=== PATIENT | female | born 1960 | race Caucasian/White ===

== ENCOUNTER → 2016-10-26 | Outpatient (REF) ==
[~2016-10-26] MED LIST: CEFTIN 250250 MG/TAB PO; CYTOMEL 2525 MCG/TAB; MACROBID 1100 MG/CAP PO; MULTI VITAMINS1 TAB PO; NORCO 325 MG-51 TAB PO; OSCAL 500 TAB500 MG PO; SYNTHROID0.075 MG/T PO; VICODIN 5/5001 UDTAB PO; VIT C; VIT D 3; thyroid medicine
== END ==
LOC: WSOH 09:52 → WSPT 10:45
DX: Z02.1 Encounter for pre-employment examination (principal)

== ENCOUNTER → 2017-09-11 | Outpatient (CLI) | payer OTHER | LOC: MC.RAD 14:00 | DX: Z12.31 Encounter for screening mammogram for malignant neoplasm of breast (principal); Z53.8 Procedure and treatment not carried out for other reasons ==

== ENCOUNTER 2019-04-19 17:52 | Emergency (ER) | payer OTHER ==
[~2019-04-19] VITALS: Ht 170.2 cm; Wt 72.7 kg
[2019-04-19 18:03] VITALS: BP 122/61; TEMP 97.8
[2019-04-19 18:50] LABS: COLLECTION METHOD CLEAN CATCH
[2019-04-19 18:55] LABS: MUCOUS Present /lpf; PH 6 (5-8); SQUAMOUS EPITHELIAL 0-2 /hpf; URINE APPEARANCE Clear; URINE BACTERIA None Seen /hpf; URINE BILIRUBIN Negative (NEGATIVE); URINE BLOOD Negative (NEGATIVE); URINE COLOR Yellow; URINE GLUCOSE Negative (NEGATIVE); URINE KETONE Negative (NEGATIVE); URINE LEUKOCYTE ESTERASE 1+ (NEGATIVE); URINE NITRATE Negative (NEGATIVE); URINE PROTEIN(semi-quant) Negative (NEGATIVE); URINE RBC 0-2 /hpf; URINE UROBILINOGEN Negative (NEGATIVE)
[2019-04-19 19:12] LABS: BASO % 0.6 % (0.0-2.0); EOS # 0.2 (0.0-0.7); EOS % 2.9 % (0-4.0); GRAN # 3.6 (1.4-6.5); GRAN % 56.9 % (42.2-75.2); HEMATOCRIT 45.6 % (37.0-47.0); HEMOGLOBIN 14.8 g/dl (12.5-16.0); LYMPH % 31.4 % (20.0-51.0); MEAN CELL VOLUME 88 fl (80.0-100.0); MEAN CORPUSCULAR HEMOGLOBIN 28 pg (27.0-31.0); MEAN CORPUSCULAR HGB CONC 33 g/dl (33.0-37.0); MEAN PLATELET VOLUME 10.6 fl (7.4-10.4); MONO # 0.5 (0.1-0.6); PLATELET COUNT 260 K/mm3 (130-400); RED BLOOD COUNT 5.21 M/mm3 (4.10-5.30); REDCELL DISTRIBUTION WIDTH-CV 13.4 % (11.5-14.5)
[2019-04-19 19:31] LABS: ALBUMIN 4.6 gm/dL (3.5-5.0); BILIRUBIN,TOTAL 0.2 mg/dL (0.0-1.0); C-REACTIVE PROTEIN 0.6 mg/dL (0.0-0.9); CALCIUM 9.6 mg/dL (8.4-10.2); CREATININE, serum 0.83 (0.52-1.25); POTASSIUM 4.1 mmol/L (3.4-5.0); TOTAL PROTEIN 8.5 gm/dL (6.4-8.2)
[2019-04-19] MEDS ORDERED: PHENERGAN 25 TA25 MG PO (21:47)
[2019-04-19] MEDS ORDERED: NORCO 325 MG-51 TAB PO (21:47)
[2019-04-19] MEDS ORDERED: NORCO 325 MG-7.1 TAB PO (22:38)
[2019-04-19 22:55] VITALS: PULSE 72
== END 2019-04-19 22:55 | disposition home or self-care (01) ==
LOC: COL.ER 17:52
PROVIDERS: Emergency Medicine; Physician Assistant
DX: R11.10 Vomiting, unspecified (principal); R10.32 Left lower quadrant pain; K63.89 Other specified diseases of intestine; E03.9 Hypothyroidism, unspecified; Z90.710 Acquired absence of both cervix and uterus
CPT/HCPCS: J1885; J2270; J2405; J2550; J7030; Q9967

== ENCOUNTER 2019-04-22 13:40 | Day surgery (SDC) | payer OTHER ==
[~2019-04-22] VITALS: Ht 170.2 cm; Wt 74.8 kg
[~2019-04-22 13:40] MED LIST changes: +NORCO 325 MG-7.1 TAB PO; +PHENERGAN 25 TA25 MG PO
[2019-04-22 14:10] VITALS: BP 114/63; PULSE 58; TEMP 98.4
[2019-04-22] MEDS ORDERED: SYNTHROID0.088 MG/T PO (14:39)
--- NOTE | 2019-04-22 15:30 | NUR ---
Dismissal instructions signed and patient taken to the front door per wheelchair and assisted into vehicle with instructions in hand.
[2019-04-22 15:45] VITALS: BP 107/47; PULSE 62
--- NOTE | 2019-04-22 15:45 | NUR ---
Patient returns to bay 4 per cart and transfers from cart to recliner. IV fluids infusing and denies pain or nausea. Sipping on water. Spouse in room.
[2019-04-22 16:00] VITALS: BP 114/63; PULSE 59
--- NOTE | 2019-04-22 16:00 | NUR ---
Dr. Rea here and talking with the patient and spouse re: need for follow up with surgeon, CT scan, and oncology consult. All questions answered.
[2019-04-22 16:15] VITALS: BP 114/63; PULSE 59
--- NOTE | 2019-04-22 16:15 | NUR ---
Sipping on water and eating crackers. States that she is wanting to go home. IV discontinued.
[2019-04-22 16:21] VITALS: BP 105/60; PULSE 56
--- NOTE | 2019-04-22 16:25 | NUR ---
Patient dresses self. Spouse in room with patient.
== END 2019-04-22 16:30 | disposition home or self-care (01) ==
LOC: SDCO 13:40
DX: C18.7 Malignant neoplasm of sigmoid colon (principal); D12.8 Benign neoplasm of rectum; R63.3 Feeding difficulties; K56.699 Other intestinal obstruction unspecified as to partial versus complete obstruction
CPT/HCPCS: J2250; J2405; J3010

== ENCOUNTER 2019-05-28 10:18 | Emergency (ER) | payer OTHER ==
[~2019-05-28] VITALS: Ht 170.2 cm; Wt 72.7 kg
[~2019-05-28 10:18] MED LIST changes: +SYNTHROID0.088 MG/T PO
[2019-05-28 10:25] VITALS: TEMP 98.7
[2019-05-28 11:38] LABS: BASO % 0.6 % (0.0-2.0); EOS # 0.8 (0.0-0.7); EOS % 11.3 % (0-4.0); HEMATOCRIT 44.1 % (37.0-47.0); HEMOGLOBIN 14.2 g/dl (12.5-16.0); LYMPH # 1.7 (1.2-3.4); MEAN CELL VOLUME 89 fl (80.0-100.0); MEAN CORPUSCULAR HEMOGLOBIN 29 pg (27.0-31.0); MEAN CORPUSCULAR HGB CONC 32 g/dl (33.0-37.0); MEAN PLATELET VOLUME 11.1 fl (7.4-10.4); MONO # 0.6 (0.1-0.6); MONO % 7.8 % (1.7-9.3); PLATELET COUNT 177 K/mm3 (130-400); RED BLOOD COUNT 4.95 M/mm3 (4.10-5.30); REDCELL DISTRIBUTION WIDTH-CV 14.1 % (11.5-14.5)
[2019-05-28 11:43] LABS: ALBUMIN 4.7 gm/dL (3.5-5.0); BILIRUBIN,TOTAL 0.4 mg/dL (0.0-1.0); CALCIUM 9.4 mg/dL (8.4-10.2); CREATININE, serum 0.68 (0.52-1.25); POTASSIUM 4.2 mmol/L (3.4-5.0); TOTAL PROTEIN 8.5 gm/dL (6.4-8.2)
[2019-05-28 12:36] VITALS: BP 106/62; PULSE 65
== END 2019-05-28 12:35 | disposition home or self-care (01) ==
LOC: COL.ER 10:18
PROVIDERS: Family Medicine
DX: J18.9 Pneumonia, unspecified organism (principal); Z85.038 Personal history of other malignant neoplasm of large intestine
CPT/HCPCS: J7030

== ENCOUNTER 2020-03-03 07:29 | Day surgery (SDC) | payer OTHER ==
[~2020-03-03] VITALS: Ht 172.7 cm; Wt 77.7 kg
[2020-03-03] MEDS ORDERED: SYNTHROID0.075 MG/T PO (08:18)
[2020-03-03 08:25] VITALS: BP 114/64; PULSE 64; TEMP 97.8
[2020-03-03 10:45] VITALS: BP 135/78; PULSE 60
--- NOTE | 2020-03-03 10:45 | NUR ---
Patient returns to room 4 per cart from PACU accompanied by Anastacia DOUGHERTY and is awake and alert. Temp 97.5. Denies pain or nausea. IV fluids infusing and site is free of redness. Patient is sipping on water and grape juice.
[2020-03-03 11:00] VITALS: BP 120/78; PULSE 60
--- NOTE | 2020-03-03 11:00 | NUR ---
Resting with eyes closed and offers no complaints.
[2020-03-03 11:15] VITALS: BP 121/75; PULSE 56
--- NOTE | 2020-03-03 11:15 | NUR ---
Eating muffin and sipping on water.
--- NOTE | 2020-03-03 12:05 | NUR ---
Dismissal instructions given and IV discontinued. Provided office numbers for questions and concerns. Patient dismissed to home driven by spouse and taken to the front door per wheelchair and assisted into vehicle by this RN with in structions in hand.
[2020-03-03 12:26] VITALS: BP 132/80; PULSE 54; TEMP 98.9
== END 2020-03-03 12:05 | disposition home or self-care (01) ==
LOC: SDCO 07:29
DX: N13.1 Hydronephrosis with ureteral stricture, not elsewhere classified (principal); E03.9 Hypothyroidism, unspecified; Z85.038 Personal history of other malignant neoplasm of large intestine; Z92.21 Personal history of antineoplastic chemotherapy; Z90.49 Acquired absence of other specified parts of digestive tract; Z90.710 Acquired absence of both cervix and uterus; Z79.899 Other long term (current) drug therapy; Z88.6 Allergy status to analgesic agent
CPT/HCPCS: C1769; C2617; J0690; J1100; J1885; J2405; J2704; J3010; J7120; Q9967

== ENCOUNTER → 2020-05-03 | Outpatient (CLI) | payer OTHER ==
[~2020-05-03] MED LIST changes: +OMNICEF 300MG300 MG PO
== END ==
LOC: MC.RAD 10:35
DX: Z12.31 Encounter for screening mammogram for malignant neoplasm of breast (principal)

== ENCOUNTER 2020-05-04 16:06 | Emergency (ER) | payer OTHER ==
[~2020-05-04] VITALS: Ht 172.7 cm; Wt 76.4 kg
[~2020-05-04 16:06] MED LIST changes: -CYTOMEL 2525 MCG/TAB; +CYTOMEL 5MC5 MCG/TAB PO; +MASON NATURAL2000 IU PO; -MULTI VITAMINS1 TAB PO; -OMNICEF 300MG300 MG PO; +ONE-A-DAY ESSE1 EACH PO; -VIT C; -VIT D 3; +VITAMIN C500 MG PO
[2020-05-04 16:11] VITALS: TEMP 97.7
[2020-05-04 16:43] LABS: BASO # 0.1 (0.0-0.2); BASO % 0.9 % (0.0-2.0); EOS # 0.2 (0.0-0.7); EOS % 2.7 % (0-4.0); GRAN # 3.3 (1.4-6.5); GRAN % 58.3 % (42.2-75.2); HEMATOCRIT 45.2 % (37.0-47.0); HEMOGLOBIN 15.2 g/dl (12.5-16.0); LYMPH # 1.7 (1.2-3.4); LYMPH % 30.3 % (20.0-51.0); MEAN CELL VOLUME 93 fl (80.0-100.0); MEAN CORPUSCULAR HEMOGLOBIN 31 pg (27.0-31.0); MEAN CORPUSCULAR HGB CONC 34 g/dl (33.0-37.0); MEAN PLATELET VOLUME 10.5 fl (7.4-10.4); MONO # 0.4 (0.1-0.6); MONO % 7.6 % (1.7-9.3); PLATELET COUNT 184 K/mm3 (130-400); RED BLOOD COUNT 4.87 M/mm3 (4.10-5.30); REDCELL DISTRIBUTION WIDTH-CV 18.2 % (11.5-14.5)
[2020-05-04 16:52] LABS: ALANINE AMINOTRANSFERASE 49 U/L (4-34); ALBUMIN 5.2 gm/dL (3.5-5.0); ALKALINE PHOSPHATASE 83 U/L (50-136); ANION GAP 13 mmol/L (7-16); AST,SGOT 53 U/L (15-37); BILIRUBIN,TOTAL 0.5 mg/dL (0.0-1.0); BLOOD UREA NITROGEN 15 mg/dL (7-17); CALCIUM 9.8 mg/dL (8.4-10.2); CARBON DIOXIDE 24 mmol/L (22-30); CHLORIDE 104 mmol/L (98-107); CREATININE, serum 0.93 (0.52-1.25); GLUCOSE 114 mg/dL (74-106); LIPASE 220 U/L (23-300); POTASSIUM 3.6 mmol/L (3.4-5.0); SODIUM 141 mmol/L (137-145); TOTAL PROTEIN 9.3 gm/dL (6.4-8.2)
[2020-05-04 16:54] LABS: C-REACTIVE PROTEIN < 0.5 mg/dL (0.0-0.9)
[2020-05-04 16:57] LABS: COLLECTION METHOD CLEAN CATCH
[2020-05-04 17:13] LABS: BUDDING YEAST Present /hpf; MUCOUS Present /lpf; PH 5 (5-8); SQUAMOUS EPITHELIAL 20-50 /hpf; URINE APPEARANCE Cloudy; URINE BACTERIA Rare /hpf; URINE BILIRUBIN Negative (NEGATIVE); URINE BLOOD 1+ (NEGATIVE); URINE COLOR Yellow; URINE GLUCOSE Negative (NEGATIVE); URINE KETONE Negative (NEGATIVE); URINE LEUKOCYTE ESTERASE Trace (NEGATIVE); URINE NITRATE Negative (NEGATIVE); URINE PROTEIN(semi-quant) 1+ (NEGATIVE); URINE RBC >50 /hpf; URINE UROBILINOGEN Negative (NEGATIVE)
[2020-05-04] MEDS ORDERED: OMNICEF 300MG300 MG PO (19:42)
[2020-05-04 19:47] VITALS: BP 114/71; PULSE 60
== END 2020-05-04 19:53 | disposition home or self-care (01) ==
LOC: COL.ER 16:06
PROVIDERS: Family Medicine
DX: R10.31 Right lower quadrant pain (principal); R11.2 Nausea with vomiting, unspecified; C18.9 Malignant neoplasm of colon, unspecified
CPT/HCPCS: J0696; J1170; J2405; J7120; Q9967

== ENCOUNTER 2020-05-06 16:01 | Emergency (ER) | payer OTHER ==
[~2020-05-06] VITALS: Ht 172.7 cm; Wt 76.4 kg
[~2020-05-06 16:01] MED LIST changes: +OMNICEF 300MG300 MG PO
[2020-05-06] MEDS ORDERED: XELODA500 MG PO (17:56)
[2020-05-06] MEDS ORDERED: AVASTIN 100M25 MG/ML IV (17:57)
[2020-05-06] MEDS ORDERED: ZOFRAN 4MG T4 MG/TAB PO (17:58)
[2020-05-06 18:07] LABS: COLLECTION METHOD CLEAN CATCH
[2020-05-06 18:18] LABS: PH 5 (5-8); URINE APPEARANCE Hazy; URINE BACTERIA None Seen /hpf; URINE BILIRUBIN Negative (NEGATIVE); URINE BLOOD 2+ (NEGATIVE); URINE COLOR Straw; URINE GLUCOSE Negative (NEGATIVE); URINE KETONE Negative (NEGATIVE); URINE LEUKOCYTE ESTERASE Negative (NEGATIVE); URINE NITRATE Negative (NEGATIVE); URINE PROTEIN(semi-quant) Negative (NEGATIVE); URINE UROBILINOGEN Negative (NEGATIVE)
[2020-05-06 18:41] LABS: BASO % 0.9 % (0.0-2.0); EOS # 0.2 (0.0-0.7); EOS % 4.3 % (0-4.0); GRAN # 1.8 (1.4-6.5); GRAN % 40.7 % (42.2-75.2); HEMATOCRIT 42.9 % (37.0-47.0); HEMOGLOBIN 14.3 g/dl (12.5-16.0); LYMPH # 1.9 (1.2-3.4); LYMPH % 42.6 % (20.0-51.0); MEAN CELL VOLUME 94 fl (80.0-100.0); MEAN CORPUSCULAR HEMOGLOBIN 31 pg (27.0-31.0); MEAN CORPUSCULAR HGB CONC 33 g/dl (33.0-37.0); MEAN PLATELET VOLUME 10.7 fl (7.4-10.4); MONO # 0.5 (0.1-0.6); MONO % 11.3 % (1.7-9.3); PLATELET COUNT 181 K/mm3 (130-400); RED BLOOD COUNT 4.56 M/mm3 (4.10-5.30); REDCELL DISTRIBUTION WIDTH-CV 17.9 % (11.5-14.5)
[2020-05-06 18:54] LABS: ALANINE AMINOTRANSFERASE 41 U/L (4-34); ALBUMIN 4.8 gm/dL (3.5-5.0); ALKALINE PHOSPHATASE 65 U/L (50-136); ANION GAP 10 mmol/L (7-16); AST,SGOT 59 U/L (15-37); BILIRUBIN,TOTAL 0.6 mg/dL (0.0-1.0); BLOOD UREA NITROGEN 16 mg/dL (7-17); CALCIUM 9.5 mg/dL (8.4-10.2); CARBON DIOXIDE 25 mmol/L (22-30); CHLORIDE 104 mmol/L (98-107); CREATININE, serum 0.87 (0.52-1.25); GLUCOSE 91 mg/dL (74-106); LIPASE 133 U/L (23-300); POTASSIUM 4.2 mmol/L (3.4-5.0); SODIUM 138 mmol/L (137-145); TOTAL PROTEIN 8.7 gm/dL (6.4-8.2)
[2020-05-06 18:56] LABS: C-REACTIVE PROTEIN < 0.5 mg/dL (0.0-0.9)
[2020-05-06 20:20] VITALS: BP 120/68; PULSE 64; TEMP 98
== END 2020-05-06 20:29 | disposition home or self-care (01) ==
LOC: COL.ER 16:01
PROVIDERS: Emergency Medicine
DX: R10.31 Right lower quadrant pain (principal); C18.9 Malignant neoplasm of colon, unspecified; Z96.0 Presence of urogenital implants; Z90.711 Acquired absence of uterus with remaining cervical stump
CPT/HCPCS: J2405; J3010; J7030; Q9967

== ENCOUNTER 2020-05-07 10:20 | Observation (INO) | payer OTHER ==
[~2020-05-07] VITALS: Ht 172.7 cm; Wt 77.6 kg
[2020-05-07] VITALS (9 sets, daily range): BP systolic 113–137; BP diastolic 62–75; PULSE 55–97; TEMP 97.5–97.6
[~2020-05-07 10:20] MED LIST changes: +AVASTIN 100M25 MG/ML IV; +XELODA500 MG PO; +ZOFRAN 4MG T4 MG/TAB PO
[2020-05-07 10:56] LABS: BASO # 0.1 (0.0-0.2); BASO % 0.8 % (0.0-2.0); EOS # 0.2 (0.0-0.7); EOS % 3.7 % (0-4.0); GRAN # 2.9 (1.4-6.5); GRAN % 46.6 % (42.2-75.2); HEMATOCRIT 47.4 % (37.0-47.0); LYMPH # 2.5 (1.2-3.4); LYMPH % 39.8 % (20.0-51.0); MEAN CELL VOLUME 94 fl (80.0-100.0); MEAN CORPUSCULAR HEMOGLOBIN 32 pg (27.0-31.0); MEAN CORPUSCULAR HGB CONC 34 g/dl (33.0-37.0); MEAN PLATELET VOLUME 10.3 fl (7.4-10.4); MONO # 0.6 (0.1-0.6); MONO % 8.9 % (1.7-9.3); PLATELET COUNT 204 K/mm3 (130-400); RED BLOOD COUNT 5.07 M/mm3 (4.10-5.30)
[2020-05-07 11:15] LABS: ALANINE AMINOTRANSFERASE 44 U/L (4-34); ALBUMIN 5.1 gm/dL (3.5-5.0); ALKALINE PHOSPHATASE 87 U/L (50-136); ANION GAP 12 mmol/L (7-16); AST,SGOT 56 U/L (15-37); BILIRUBIN,TOTAL 0.6 mg/dL (0.0-1.0); BLOOD UREA NITROGEN 13 mg/dL (7-17); CALCIUM 9.6 mg/dL (8.4-10.2); CARBON DIOXIDE 22 mmol/L (22-30); CHLORIDE 106 mmol/L (98-107); CREATININE, serum 0.87 (0.52-1.25); GLUCOSE 98 mg/dL (74-106); LIPASE 148 U/L (23-300); POTASSIUM 3.9 mmol/L (3.4-5.0); SODIUM 139 mmol/L (137-145); TOTAL PROTEIN 9.3 gm/dL (6.4-8.2)
[2020-05-07 11:22] LABS: C-REACTIVE PROTEIN < 0.5 mg/dL (0.0-0.9)
--- NOTE | 2020-05-07 16:40 | NUR ---
Contacted Dr. Denis, patient would like to advance diet. New diet order entered.
--- NOTE | 2020-05-07 18:11 | NUR ---
Patient ambulating in [place] with daughter, steady gait.
--- NOTE | 2020-05-07 18:18 | NUR ---
Patient has done well since up from surgery. Denies pain, states she feels bloated after meal this afternoon. Up ambulating in halls with steady gait. Denies further needs at this time. Will report off to shift supervisor rn.
--- NOTE | 2020-05-07 19:20 | NUR ---
Admission assessment complete. A&Ox3. VS stable. Denies nausea/shortness of breath/pain. IV to left forearm with LR@100mls/hr. Lap sites x2 abdomen-edges well approximated-no drainage noted. +Flatus. Plan of care discussed for this shift to include pain control/IV fluids for hydration and calling for needs. Verbalizes understanding. Call light in reach. Will monitor.
[2020-05-08] VITALS: BP 121/63; PULSE 72; TEMP 97.8
[2020-05-08 04:00] VITALS: BP 121/65; PULSE 62; TEMP 98.5
[2020-05-08 06:19] LABS: COLLECTION METHOD CLEAN CATCH
[2020-05-08 06:36] LABS: MUCOUS Present /lpf; PH 6 (5-8); SQUAMOUS EPITHELIAL None Seen /hpf; URINE APPEARANCE Clear; URINE BACTERIA None Seen /hpf; URINE BILIRUBIN Negative (NEGATIVE); URINE BLOOD 3+ (NEGATIVE); URINE COLOR Yellow; URINE GLUCOSE Negative (NEGATIVE); URINE KETONE Negative (NEGATIVE); URINE LEUKOCYTE ESTERASE Negative (NEGATIVE); URINE NITRATE Negative (NEGATIVE); URINE PROTEIN(semi-quant) Negative (NEGATIVE); URINE RBC 20-50 /hpf; URINE UROBILINOGEN Negative (NEGATIVE)
[2020-05-08 07:29] VITALS: BP 112/77; PULSE 69; TEMP 98.8
--- NOTE | 2020-05-08 07:52 | NUR ---
Dr Denis here to see patient.
--- NOTE | 2020-05-08 08:05 | NUR ---
Patient alert and oriented, answers questions appropriately. See assessment. Abdomen soft, non tender, non distended. Bowel sounds active x4 quads. +Flatus. Lap sites with edges well approximated, no redness or drainage noted. No c/o at this time.
[2020-05-08] MEDS ORDERED: NEURONTIN100 MG/CAP PO (08:10)
--- NOTE | 2020-05-08 09:09 | NUR ---
Discharge instructions reviewed with patient, verbalized understanding. Discharged via wheelchair to auto/home with family at 0908.
== END 2020-05-08 09:08 | disposition home or self-care (01) ==
LOC: COL.ER 10:20 → SURG 11:33
PROVIDERS: Family Medicine; ADMIT Surgery
DX: C18.9 Malignant neoplasm of colon, unspecified (principal); C78.6 Secondary malignant neoplasm of retroperitoneum and peritoneum; Z90.710 Acquired absence of both cervix and uterus; Z90.49 Acquired absence of other specified parts of digestive tract
CPT/HCPCS: A4314; G0378; J0330; J1170; J1885; J2405; J2704; J3010; J7120

== ENCOUNTER → 2020-06-03 | Outpatient (CLI) | payer OTHER ==
[~2020-06-03] MED LIST changes: +FENTANYL 25 MCG TD; +NEURONTIN100 MG/CAP PO; +REGLAN 10MG10 MG/TAB PO
== END ==
LOC: COL.RAD 12:41
DX: C18.7 Malignant neoplasm of sigmoid colon (principal); M51.16 Intervertebral disc disorders with radiculopathy, lumbar region
CPT/HCPCS: A9585

== ENCOUNTER 2020-06-06 15:19 | Emergency (ER) | payer OTHER ==
[~2020-06-06] VITALS: Ht 172.7 cm; Wt 75.0 kg
[~2020-06-06 15:19] MED LIST changes: -FENTANYL 25 MCG TD; -REGLAN 10MG10 MG/TAB PO
[2020-06-06 16:00] VITALS: TEMP 99.3
[2020-06-06 17:15] LABS: BASO % 0.3 % (0.0-2.0); EOS % 0.2 % (0-4.0); GRAN # 8.1 (1.4-6.5); GRAN % 76.8 % (42.2-75.2); HEMATOCRIT 46.4 % (37.0-47.0); HEMOGLOBIN 15.7 g/dl (12.5-16.0); LYMPH # 1.5 (1.2-3.4); LYMPH % 14.7 % (20.0-51.0); MEAN CELL VOLUME 92 fl (80.0-100.0); MEAN CORPUSCULAR HEMOGLOBIN 31 pg (27.0-31.0); MEAN CORPUSCULAR HGB CONC 34 g/dl (33.0-37.0); MEAN PLATELET VOLUME 10.2 fl (7.4-10.4); MONO # 0.8 (0.1-0.6); MONO % 7.8 % (1.7-9.3); PLATELET COUNT 292 K/mm3 (130-400); RED BLOOD COUNT 5.03 M/mm3 (4.10-5.30)
[2020-06-06 17:24] LABS: ALBUMIN 5.1 gm/dL (3.5-5.0); BILIRUBIN,TOTAL 0.6 mg/dL (0.0-1.0); CALCIUM 9.5 mg/dL (8.4-10.2); CREATININE, serum 0.78 (0.52-1.25); POTASSIUM 3.9 mmol/L (3.4-5.0); TOTAL PROTEIN 9.2 gm/dL (6.4-8.2)
[2020-06-06 19:56] LABS: COLLECTION METHOD CLEAN CATCH
[2020-06-06 20:03] LABS: MUCOUS Present /lpf; PH 6 (5-8); SQUAMOUS EPITHELIAL 0-2 /hpf; URINE APPEARANCE Clear; URINE BACTERIA None Seen /hpf; URINE BILIRUBIN Negative (NEGATIVE); URINE BLOOD Negative (NEGATIVE); URINE COLOR Straw; URINE GLUCOSE Negative (NEGATIVE); URINE KETONE 1+ (NEGATIVE); URINE LEUKOCYTE ESTERASE Negative (NEGATIVE); URINE NITRATE Negative (NEGATIVE); URINE PROTEIN(semi-quant) Negative (NEGATIVE); URINE UROBILINOGEN Negative (NEGATIVE)
[2020-06-06] MEDS ORDERED: FENTANYL 25 MCG TD (22:05)
[2020-06-06] MEDS ORDERED: REGLAN 10MG10 MG/TAB PO (22:05)
[2020-06-06 23:10] VITALS: BP 146/80; PULSE 78
== END 2020-06-06 23:10 | disposition home or self-care (01) ==
LOC: COL.ER 15:19
PROVIDERS: Emergency Medicine
DX: R11.10 Vomiting, unspecified (principal); R10.9 Unspecified abdominal pain; C18.9 Malignant neoplasm of colon, unspecified; Z88.6 Allergy status to analgesic agent
CPT/HCPCS: C9113; J0780; J1170; J7030; Q9967

== ENCOUNTER 2020-06-14 13:04 | Emergency (ER) | payer OTHER ==
[~2020-06-14] VITALS: Ht 172.7 cm; Wt 72.7 kg
[~2020-06-14 13:04] MED LIST changes: +FENTANYL 25 MCG TD; +REGLAN 10MG10 MG/TAB PO
[2020-06-14 13:12] VITALS: TEMP 98
[2020-06-14 14:25] LABS: HEMATOCRIT 45.2 % (37.0-47.0); HEMOGLOBIN 15.1 g/dl (12.5-16.0); MEAN CELL VOLUME 95 fl (80.0-100.0); MEAN CORPUSCULAR HEMOGLOBIN 32 pg (27.0-31.0); MEAN CORPUSCULAR HGB CONC 33 g/dl (33.0-37.0); MEAN PLATELET VOLUME 10.7 fl (7.4-10.4); PLATELET COUNT 225 K/mm3 (130-400); RED BLOOD COUNT 4.78 M/mm3 (4.10-5.30); REDCELL DISTRIBUTION WIDTH-CV 14.3 % (11.5-14.5)
[2020-06-14 14:36] LABS: ALBUMIN 5.1 gm/dL (3.5-5.0); BILIRUBIN,TOTAL 0.5 mg/dL (0.0-1.0); CALCIUM 10.2 mg/dL (8.4-10.2); CREATININE, serum 0.69 (0.52-1.25); POTASSIUM 3.8 mmol/L (3.4-5.0); TOTAL PROTEIN 9.3 gm/dL (6.4-8.2)
[2020-06-14 14:46] LABS: BAND 2 % (0-10); LYMPHOCYTE 6 % (20.0-51.0); NEUTROPHILS 91 % (42.0-75.2); PLATELET ESTIMATE NORMAL (NORMAL)
[2020-06-14 15:51] LABS: COLLECTION METHOD CLEAN CATCH
[2020-06-14 16:01] LABS: MUCOUS Present /lpf; PH 5 (5-8); SQUAMOUS EPITHELIAL 0-2 /hpf; URINE APPEARANCE Clear; URINE BACTERIA None Seen /hpf; URINE BILIRUBIN Negative (NEGATIVE); URINE BLOOD Negative (NEGATIVE); URINE COLOR Yellow; URINE GLUCOSE Negative (NEGATIVE); URINE KETONE Trace (NEGATIVE); URINE LEUKOCYTE ESTERASE Trace (NEGATIVE); URINE NITRATE Negative (NEGATIVE); URINE PROTEIN(semi-quant) Negative (NEGATIVE); URINE UROBILINOGEN Negative (NEGATIVE)
[2020-06-14] MEDS ORDERED: FENTANYL 25 MCG TD (19:56)
[2020-06-14] MEDS ORDERED: OMNICEF 300MG300 MG PO (19:57)
[2020-06-14 20:05] VITALS: BP 121/68; PULSE 79
== END 2020-06-14 20:06 | disposition home or self-care (01) ==
LOC: COL.ER 13:04
PROVIDERS: Nurse Practitioner Primary Care
DX: C78.5 Secondary malignant neoplasm of large intestine and rectum (principal); N39.0 Urinary tract infection, site not specified; G62.9 Polyneuropathy, unspecified; E86.0 Dehydration; E03.9 Hypothyroidism, unspecified; Z90.710 Acquired absence of both cervix and uterus; Z96.0 Presence of urogenital implants; Z88.5 Allergy status to narcotic agent
CPT/HCPCS: J1170; J3370; J7030; J7050; Q9967

== ENCOUNTER 2020-07-05 08:10 | Emergency (ER) | payer OTHER ==
[~2020-07-05] VITALS: Ht 172.7 cm; Wt 75.0 kg
[~2020-07-05 08:10] MED LIST changes: +ZOFRAN ODT4 MG PO
[2020-07-05 09:06] LABS: BASO % 0.1 % (0.0-2.0); GRAN % 84.1 % (42.2-75.2); HEMATOCRIT 43.3 % (37.0-47.0); HEMOGLOBIN 14.4 g/dl (12.5-16.0); LYMPH # 1.1 (1.2-3.4); LYMPH % 10.4 % (20.0-51.0); MEAN CELL VOLUME 92 fl (80.0-100.0); MEAN CORPUSCULAR HEMOGLOBIN 31 pg (27.0-31.0); MEAN CORPUSCULAR HGB CONC 33 g/dl (33.0-37.0); MEAN PLATELET VOLUME 10.4 fl (7.4-10.4); MONO # 0.6 (0.1-0.6); MONO % 5.1 % (1.7-9.3); PLATELET COUNT 297 K/mm3 (130-400); RED BLOOD COUNT 4.71 M/mm3 (4.10-5.30); REDCELL DISTRIBUTION WIDTH-CV 13.6 % (11.5-14.5)
[2020-07-05 09:18] LABS: ALANINE AMINOTRANSFERASE 27 U/L (4-34); ALBUMIN 4.9 gm/dL (3.5-5.0); ALKALINE PHOSPHATASE 81 U/L (50-136); ANION GAP 15 mmol/L (7-16); AST,SGOT 35 U/L (15-37); BILIRUBIN,TOTAL 0.5 mg/dL (0.0-1.0); BLOOD UREA NITROGEN 11 mg/dL (7-17); C-REACTIVE PROTEIN < 0.5 mg/dL (0.0-0.9); CALCIUM 9.9 mg/dL (8.4-10.2); CARBON DIOXIDE 18 mmol/L (22-30); CHLORIDE 105 mmol/L (98-107); CREATININE, serum 0.75 (0.52-1.25); GLUCOSE 148 mg/dL (74-106); LIPASE 82 U/L (23-300); POTASSIUM 3.3 mmol/L (3.4-5.0); SODIUM 138 mmol/L (137-145); TOTAL PROTEIN 8.7 gm/dL (6.4-8.2)
[2020-07-05 10:05] LABS: COLLECTION METHOD CLEAN CATCH
[2020-07-05 10:19] LABS: PH 7 (5-8); SQUAMOUS EPITHELIAL 0-2 /hpf; URINE APPEARANCE Clear; URINE BACTERIA None Seen /hpf; URINE BILIRUBIN Negative (NEGATIVE); URINE BLOOD Negative (NEGATIVE); URINE COLOR Straw; URINE GLUCOSE Negative (NEGATIVE); URINE KETONE Trace (NEGATIVE); URINE LEUKOCYTE ESTERASE Negative (NEGATIVE); URINE NITRATE Negative (NEGATIVE); URINE PROTEIN(semi-quant) Negative (NEGATIVE); URINE UROBILINOGEN Negative (NEGATIVE)
[2020-07-05 14:10] VITALS: BP 170/95; PULSE 83; TEMP 97.2
== END 2020-07-05 14:10 | disposition home or self-care (01) ==
LOC: COL.ER 08:10
PROVIDERS: Family Medicine
DX: R10.9 Unspecified abdominal pain (principal); Z88.6 Allergy status to analgesic agent; Z90.710 Acquired absence of both cervix and uterus
CPT/HCPCS: J2060; J2270; J2405; J2550; J7120; Q9967

== ENCOUNTER 2020-07-16 13:34 | Emergency (ER) | payer OTHER ==
[~2020-07-16] VITALS: Ht 172.7 cm; Wt 72.7 kg
[~2020-07-16 13:34] MED LIST changes: +DILAUDID 2MG TAB2 MG PO; +FLOMAX 0.40.4 MG/CAP PO; +LEVSIN0.125 M1 SL; +ROXANOL 20MG20 MG/ML PO
[2020-07-16 13:41] VITALS: BP 126/82; TEMP 97.8
[2020-07-16 14:11] LABS: BASO % 0.5 % (0.0-2.0); EOS # 0.3 (0.0-0.7); EOS % 3.9 % (0-4.0); GRAN # 5.4 (1.4-6.5); GRAN % 62.6 % (42.2-75.2); HEMATOCRIT 44.9 % (37.0-47.0); HEMOGLOBIN 14.9 g/dl (12.5-16.0); LYMPH # 2.2 (1.2-3.4); LYMPH % 25.3 % (20.0-51.0); MEAN CELL VOLUME 93 fl (80.0-100.0); MEAN CORPUSCULAR HEMOGLOBIN 31 pg (27.0-31.0); MEAN CORPUSCULAR HGB CONC 33 g/dl (33.0-37.0); MEAN PLATELET VOLUME 10.1 fl (7.4-10.4); MONO # 0.6 (0.1-0.6); MONO % 7.4 % (1.7-9.3); PLATELET COUNT 349 K/mm3 (130-400); RED BLOOD COUNT 4.81 M/mm3 (4.10-5.30); REDCELL DISTRIBUTION WIDTH-CV 13.6 % (11.5-14.5)
[2020-07-16 14:19] LABS: ALBUMIN 4.8 gm/dL (3.5-5.0); BILIRUBIN,TOTAL 0.4 mg/dL (0.0-1.0); C-REACTIVE PROTEIN 0.7 mg/dL (0.0-0.9); CALCIUM 9.9 mg/dL (8.4-10.2); CREATININE, serum 0.84 (0.52-1.25); POTASSIUM 3.4 mmol/L (3.4-5.0); TOTAL PROTEIN 8.5 gm/dL (6.4-8.2)
[2020-07-16 15:06] LABS: COLLECTION METHOD CLEAN CATCH
[2020-07-16 15:20] LABS: MUCOUS Present /lpf; PH 5 (5-8); SQUAMOUS EPITHELIAL 0-2 /hpf; URINE APPEARANCE Hazy; URINE BACTERIA Rare /hpf; URINE BILIRUBIN Negative (NEGATIVE); URINE BLOOD Negative (NEGATIVE); URINE COLOR Yellow; URINE GLUCOSE Negative (NEGATIVE); URINE KETONE Negative (NEGATIVE); URINE LEUKOCYTE ESTERASE Negative (NEGATIVE); URINE NITRATE Negative (NEGATIVE); URINE PROTEIN(semi-quant) 1+ (NEGATIVE); URINE RBC 0-2 /hpf; URINE UROBILINOGEN Negative (NEGATIVE)
[2020-07-16 15:42] VITALS: PULSE 74
== END 2020-07-16 16:10 | disposition home or self-care (01) ==
LOC: COL.ER 13:34
PROVIDERS: Physician Assistant
DX: R11.2 Nausea with vomiting, unspecified (principal); R10.9 Unspecified abdominal pain; G89.29 Other chronic pain; F32.9 Major depressive disorder, single episode, unspecified; E03.9 Hypothyroidism, unspecified; Z85.038 Personal history of other malignant neoplasm of large intestine; Z90.710 Acquired absence of both cervix and uterus; Z88.6 Allergy status to analgesic agent; Z79.890 Hormone replacement therapy
CPT/HCPCS: J1630; J2405; J2550; J7030

== ENCOUNTER 2020-08-10 19:36 | Emergency (ER) | payer OTHER ==
[~2020-08-10] VITALS: Ht 172.7 cm; Wt 72.7 kg
[2020-08-10 19:46] VITALS: TEMP 98.3
[2020-08-10 20:17] LABS: BASO % 0.6 % (0.0-2.0); EOS % 0.2 % (0-4.0); GRAN # 5.7 (1.4-6.5); GRAN % 86.7 % (42.2-75.2); HEMATOCRIT 45.4 % (37.0-47.0); HEMOGLOBIN 14.8 g/dl (12.5-16.0); LYMPH # 0.6 (1.2-3.4); LYMPH % 8.9 % (20.0-51.0); MEAN CELL VOLUME 91 fl (80.0-100.0); MEAN CORPUSCULAR HEMOGLOBIN 30 pg (27.0-31.0); MEAN CORPUSCULAR HGB CONC 33 g/dl (33.0-37.0); MEAN PLATELET VOLUME 9.8 fl (7.4-10.4); MONO # 0.2 (0.1-0.6); MONO % 3.3 % (1.7-9.3); PLATELET COUNT 353 K/mm3 (130-400); RED BLOOD COUNT 4.98 M/mm3 (4.10-5.30); REDCELL DISTRIBUTION WIDTH-CV 13.6 % (11.5-14.5)
[2020-08-10 20:34] LABS: ALBUMIN 5.1 gm/dL (3.5-5.0); BILIRUBIN,TOTAL 0.5 mg/dL (0.0-1.0); C-REACTIVE PROTEIN 0.8 mg/dL (0.0-0.9); CREATININE, serum 0.84 (0.52-1.25); POTASSIUM 3.8 mmol/L (3.4-5.0); TOTAL PROTEIN 9.2 gm/dL (6.4-8.2)
[2020-08-10 22:36] LABS: COLLECTION METHOD CLEAN CATCH
[2020-08-10 22:53] LABS: MUCOUS Present /lpf; PH 6 (5-8); SQUAMOUS EPITHELIAL 0-2 /hpf; URINE APPEARANCE Clear; URINE BACTERIA None Seen /hpf; URINE BILIRUBIN Negative (NEGATIVE); URINE BLOOD 1+ (NEGATIVE); URINE COLOR Yellow; URINE GLUCOSE Negative (NEGATIVE); URINE KETONE Trace (NEGATIVE); URINE LEUKOCYTE ESTERASE Negative (NEGATIVE); URINE NITRATE Negative (NEGATIVE); URINE PROTEIN(semi-quant) Negative (NEGATIVE); URINE RBC 20-50 /hpf; URINE UROBILINOGEN Negative (NEGATIVE)
[2020-08-10 23:35] VITALS: BP 121/71; PULSE 84
[2020-08-11] MEDS ORDERED: FENTANYL 25 MCG TD (21:41)
[2020-08-11] MEDS ORDERED: FENTANYL 12MCG TD (21:42)
== END 2020-08-10 23:39 | disposition home or self-care (01) ==
LOC: COL.ER 19:36
PROVIDERS: Nurse Practitioner
DX: R19.00 Intra-abdominal and pelvic swelling, mass and lump, unspecified site (principal); R10.84 Generalized abdominal pain; R11.10 Vomiting, unspecified; R00.0 Tachycardia, unspecified; Z90.710 Acquired absence of both cervix and uterus; Z88.1 Allergy status to other antibiotic agents; Z88.5 Allergy status to narcotic agent
CPT/HCPCS: J1170; J2405; J7030; Q9967

== ENCOUNTER 2020-08-11 09:16 | Inpatient (IN) | payer OTHER ==
[~2020-08-11] VITALS: Ht 172.7 cm; Wt 72.7 kg
[2020-08-11 10:19] LABS: BASO % 0.4 % (0.0-2.0); EOS # 0.1 (0.0-0.7); EOS % 1.4 % (0-4.0); GRAN # 8.1 (1.4-6.5); GRAN % 77.8 % (42.2-75.2); HEMATOCRIT 42.7 % (37.0-47.0); HEMOGLOBIN 13.9 g/dl (12.5-16.0); LYMPH # 1.3 (1.2-3.4); LYMPH % 12.3 % (20.0-51.0); MEAN CELL VOLUME 91 fl (80.0-100.0); MEAN CORPUSCULAR HEMOGLOBIN 30 pg (27.0-31.0); MEAN CORPUSCULAR HGB CONC 33 g/dl (33.0-37.0); MEAN PLATELET VOLUME 9.9 fl (7.4-10.4); MONO # 0.8 (0.1-0.6); MONO % 7.9 % (1.7-9.3); PLATELET COUNT 347 K/mm3 (130-400); RED BLOOD COUNT 4.67 M/mm3 (4.10-5.30); REDCELL DISTRIBUTION WIDTH-CV 13.8 % (11.5-14.5)
[2020-08-11 10:25] LABS: INR 1.1 (0.8-3.0); PROTHROMBIN TIME 12.8 SECONDS (9.7-12.8)
[2020-08-11 10:28] LABS: PARTIAL THROMBOPLASTIN TIME 33.4 SECONDS (26.0-37.0)
[2020-08-11 10:30] LABS: ALANINE AMINOTRANSFERASE 23 U/L (4-34); ALBUMIN 4.5 gm/dL (3.5-5.0); ALKALINE PHOSPHATASE 77 U/L (50-136); ANION GAP 14 mmol/L (7-16); AST,SGOT 34 U/L (15-37); BILIRUBIN,TOTAL 0.4 mg/dL (0.0-1.0); BLOOD UREA NITROGEN 12 mg/dL (7-17); CALCIUM 9.3 mg/dL (8.4-10.2); CARBON DIOXIDE 23 mmol/L (22-30); CHLORIDE 105 mmol/L (98-107); CREATININE, serum 0.87 (0.52-1.25); GLUCOSE 124 mg/dL (74-106); LIPASE 127 U/L (23-300); POTASSIUM 3.1 mmol/L (3.4-5.0); SODIUM 142 mmol/L (137-145); TOTAL PROTEIN 8.4 gm/dL (6.4-8.2)
[2020-08-11 10:42] LABS: TROPONIN-I < 0.012 ng/mL (0.000-0.035)
[2020-08-11 11:35] LABS: COLLECTION METHOD CLEAN CATCH
[2020-08-11 11:56] LABS: PH 6 (5-8); SQUAMOUS EPITHELIAL 0-2 /hpf; URINE APPEARANCE Clear; URINE BACTERIA None Seen /hpf; URINE BILIRUBIN Negative (NEGATIVE); URINE BLOOD 1+ (NEGATIVE); URINE COLOR Straw; URINE GLUCOSE Negative (NEGATIVE); URINE KETONE Negative (NEGATIVE); URINE LEUKOCYTE ESTERASE Trace (NEGATIVE); URINE NITRATE Negative (NEGATIVE); URINE PROTEIN(semi-quant) Negative (NEGATIVE); URINE RBC 20-50 /hpf; URINE UROBILINOGEN Negative (NEGATIVE)
--- NOTE | 2020-08-11 14:35 | NUR ---
SW responded to consult. The patient has IV colon cancer and may be interested in changing plan of care to palliative care. Her pain is not being controlled at home. ELISA met with the patient. The patient lives in [place] with her , Dontae (ph#[phone]). She reports great support from him and the rest of her family. She states that her oncologist in [place] is Dr. Barriga and she has another oncologist, Dr. Cornelius, in [place]. SW addressed goals of care. The patient states that her oncologists have discussed maybe being able to surgically remove a tumor that she has, that sits on her bowels. She went to [facility] for a second opinion, but is unsure if they have decided that they could do this. She states that if the tumor was able to be removed, then she would want to pursue with this. If the tumor cannot not be removed, then she would be interested in hospice care possibly in the home vs hospice house. The patient attempted to contact Dr. Cornelius's office. Her volume was on speaker phone. No one answered at Dr. Cornelius's office. She left a voicemail. The ED doctor then entered her room. SW updated him on the above information. The patient reports that she would like to stay here for palliative care for couple days and then return home and hopefully get a hold of her oncologists, to get the surgery. The patient was informed that we could not do this. The patient is stable. Plan is to try and have the patient eat and get nausea/pain managed with meds. ELISA encouraged the patient to talk to her oncologists and doctors. ELISA asked the patient if she has spoken to her and family about considering hospice. The patient reports that she has not. ELISA encouraged the patient to do this and provided her with a list of the different hospice agencies that serve the [facility] area. ELISA also discussed home health in the meantime, while she is waiting to hear from doctors. The patient reports that she is not interested in home health at this time. She had no other questions for ELISA at this time. ELISA updated the ED doctor and RN.
[2020-08-11 20:00] VITALS: BP 134/72; PULSE 66; TEMP 98.7
[2020-08-11 21:17] VITALS: BP 130/77; PULSE 66; TEMP 98.7
[2020-08-11] MEDS ORDERED: FENTANYL 25 MCG TD (21:41)
[2020-08-11] MEDS ORDERED: FENTANYL 12MCG TD (21:42)
[2020-08-12 06:00] VITALS: BP 130/67; PULSE 65; TEMP 98.5
[2020-08-12 06:43] LABS: BASO # 0.1 (0.0-0.2); BASO % 0.9 % (0.0-2.0); EOS # 0.3 (0.0-0.7); GRAN # 2.9 (1.4-6.5); GRAN % 50.1 % (42.2-75.2); MEAN CELL VOLUME 94 fl (80.0-100.0); MEAN CORPUSCULAR HGB CONC 33 g/dl (33.0-37.0); MEAN PLATELET VOLUME 10.8 fl (7.4-10.4); MONO # 0.6 (0.1-0.6); MONO % 9.8 % (1.7-9.3); PLATELET COUNT 303 K/mm3 (130-400)
[2020-08-12 06:45] LABS: HEMATOCRIT 35.7 % (37.0-47.0); HEMOGLOBIN 11.7 g/dl (12.5-16.0); MEAN CORPUSCULAR HEMOGLOBIN 31 pg (27.0-31.0)
[2020-08-12 06:56] LABS: CALCIUM 8.4 mg/dL (8.4-10.2); CREATININE, serum 0.83 (0.52-1.25); MAGNESIUM 2.1 mg/dL (1.6-2.3); POTASSIUM 3.6 mmol/L (3.4-5.0)
--- NOTE | 2020-08-12 07:05 | NUR ---
Patient lying in bed with eyes closed. Opens eyes when enter room. Alert and oriented x4. Minimal pain in abd at this time, describes as sore, patient says that this is due to her muscles sore in abd from vomiting. Patient says that her nausea is a little better. Patient would like to get back on her regimen of phenergan suppositories as she was on at home as that was working well for her. Explain that we can discuss this with the provider today. Patient denies additional needs at this time.
[2020-08-12 07:36] VITALS: BP 123/71; PULSE 63; TEMP 98.3
--- NOTE | 2020-08-12 07:49 | NUR ---
Patient spouse calls to get update on patient. Spouse does not have four digit code to get patient information. Ask patient if I can speak with spouse regarding her health care and the patient says yes. Provide the patient and spouse with four digit code. Patient spouse then goes on to say that he did not want to interrupt the patient and would have just called her cell phone if this was going to happen. Apologize to the patient and spouse for the inconvenience and explain the policy we have in place with the four digit code to get patient information. Spouse says that he has not had to do this with getting information from the ER. Provide update to spouse. Spouse asks when surgery will be. Explain that nothing was relayed to me about having a surgery and ask for clarification if a surgery is to be done. Spouse says that they are going to have surgery at [facility]. Explain that we will have to try to get records from [facility] today and if not today we will have to try tomorrow. Spouse then says okay and tells the patient he will call her on her cell phone and then hangs the phone up. Apologize to the patient for any inconvenience and again explain out policy with the four digit code to give out her information. Patient says that she understands.
--- NOTE | 2020-08-12 08:06 | NUR ---
Message left for Dr. Jones to inform him of urology consult.
--- NOTE | 2020-08-12 08:11 | NUR ---
Dr. Jones calls back and is informed on consult.
--- NOTE | 2020-08-12 08:30 | NUR ---
Spoke with patient regarding getting records from [facility]. Patient says that she does not think that it is necessary to try to get records from them as they do not even have a plan yet on what they are going to do. Patient says that she is just here to try to get this nausea back under control and she plans to contact [facility] to let them know about her stay here and see what the plan is.Per the patient she thinks they will end up having to perform some type of surgery to try to remove tumor but she is not certain that this will happen. Explain that the providers here are just trying to get on the same plan as to what [facility] would suggest doing and if she may need to get transferred to [facility] the provider here will need to talk with the provider there. Patient says that she does not think the transfer will happen at this time. Is more concerned about getting nausea under control so that she can go home and then follow up with [facility].
[2020-08-12 11:15] VITALS: BP 126/57; PULSE 69; TEMP 98.8
--- NOTE | 2020-08-12 11:47 | NUR ---
Patient having some nausea and requests Zofran. Zofran administered as prescribed. Dr. Jones in room talking with patient.
--- NOTE | 2020-08-12 12:46 | NUR ---
Sitting up in bed. Says that the Zofran helped with her nausea. COntinues to work on jello that she got at lunch. Patient denies any additional needs at this time.
[2020-08-12 16:00] VITALS: BP 112/66; PULSE 62; TEMP 98.9
--- NOTE | 2020-08-12 16:02 | NUR ---
Lying in bed with eyes open. Patient says that she is doing okay at this time. Denies pain or nausea when asked. No further needs at this time.
--- NOTE | 2020-08-12 18:27 | NUR ---
Patient done eating dinner, ate about 75%. Requests some Zofran. Administer Zofran as prescribed. Patient says that she will need to get her Estrace and Lyrica ordered. Explained that we will need to speak with the provider to get these meds ordered.
[2020-08-12] MEDS ORDERED: ESTRACE0.1 MG/GM VG (18:33)
[2020-08-12] MEDS ORDERED: LYRICA 75MG CAP75 MG PO (18:34)
[2020-08-12 19:22] VITALS: BP 114/58; PULSE 72; TEMP 99.3
--- NOTE | 2020-08-12 20:00 | NUR ---
Report received, assumed care for second shift supervisor. Assessment complete. A&Ox3-drowsy. Vs stable. Denies pain/nausea/shortness of breath. Voiding without difficulty. IV to right forearm infusing D5NS with 20meqK @75ml/hr. Infusing without difficulty. Tolerating diet. Plan of care discussed for this shift to [facility] meds/calling for questions/concerns. Call light in reach/will continue to monitor.
[2020-08-12 23:48] VITALS: BP 124/73; PULSE 62; TEMP 98.9
[2020-08-13] VITALS (7 sets, daily range): BP systolic 112–171; BP diastolic 45–84; PULSE 58–75; TEMP 97.8–99.4
--- NOTE | 2020-08-13 00:11 | NUR ---
Resting in bed-c/o nausea. Zofran given per dr mcdaniel. Denies pain. Call light in reach. Will monitor.
--- NOTE | 2020-08-13 05:30 | NUR ---
Called with c/o nausea-requesting zofran-given at this time per dr order. Has tolerated PO this shift. Denied need for pain medications. D5NS with 20meg K infusing at 75mls/hr to right forearm IV. Call light in reach. Will monitor.
[2020-08-13 07:29] LABS: BASO # 0.1 (0.0-0.2); BASO % 1.1 % (0.0-2.0); EOS # 0.4 (0.0-0.7); EOS % 7.7 % (0-4.0); GRAN # 1.8 (1.4-6.5); GRAN % 38.5 % (42.2-75.2); HEMATOCRIT 35.4 % (37.0-47.0); HEMOGLOBIN 11.7 g/dl (12.5-16.0); LYMPH # 1.9 (1.2-3.4); LYMPH % 40.3 % (20.0-51.0); MEAN CELL VOLUME 93 fl (80.0-100.0); MEAN CORPUSCULAR HEMOGLOBIN 31 pg (27.0-31.0); MEAN CORPUSCULAR HGB CONC 33 g/dl (33.0-37.0); MEAN PLATELET VOLUME 10.5 fl (7.4-10.4); MONO # 0.6 (0.1-0.6); MONO % 12.2 % (1.7-9.3); PLATELET COUNT 307 K/mm3 (130-400); RED BLOOD COUNT 3.81 M/mm3 (4.10-5.30); REDCELL DISTRIBUTION WIDTH-CV 13.9 % (11.5-14.5)
[2020-08-13 07:38] LABS: CALCIUM 8.5 mg/dL (8.4-10.2); CREATININE, serum 0.95 (0.52-1.25); MAGNESIUM 2.1 mg/dL (1.6-2.3); POTASSIUM 3.8 mmol/L (3.4-5.0)
--- NOTE | 2020-08-13 08:06 | NUR ---
Lying in bed with eyes open watching TV. Alert and oriented x4. Denies pain. No nausea at this time. Patient says that she would like to shower later and will let us know when she is ready. Denies needs at this time.
--- NOTE | 2020-08-13 11:52 | NUR ---
Rating pain in low abd 6-10/10, describes as sharp. Explains that it comes and goes with severity. Was up and showered and then the pain started to happen. Explains that her fentanyl patches are due to be changed today, will get with hospitalist on getting orders for this. Administer Zofran for nausea per patient request. Patient would also like Dilaudid. Will administer as prescribed.
--- NOTE | 2020-08-13 12:37 | NUR ---
Fentanyl pacth applied to left shoulder/neck area. Patient screaming out in pain and asks for Ativan. Explain that there is no Ativan ordered for her to take. Patient says that the ER always gives her Ativan and Dilaudid together. Explain that I would speak with the provider. Patient says that she needs Ativan or more Dilaudid. Reexplain that we will speak with the provider to see what more we can do. Spoke with ERICK Luis, and Dr. Butler. Orders received for Ativan. Will administer at this time.
--- NOTE | 2020-08-13 13:15 | NUR ---
Awa, housekeeping cleaner, tells this nurse that the patient has called out crying a couple times and that her has called the nurses station explaining that they need someone to give her pain management. Explain to Awa that we have provided Dilaudid, Zofran, Fentanyl patch, and Ativan and that Janelle and Dr. Butler are aware of the patient situation. Will update Dr. Butler and have her see patient.
--- NOTE | 2020-08-13 13:20 | NUR ---
Dr. Plascencia updated and will see patient.
--- NOTE | 2020-08-13 14:00 | NUR ---
Patient lying in bed with eyes open. Rates pain 2/10, feeling better. Did have an episode of emesis. Asks if she starts to have pain when she can have the Dilaudid and Ativan again. Explain that the Dilaudid can be given every two hours and she can have that at any time. Explain that the Ativan ws just a one time order. Patient says that the only thing that works is the Dilaudid and Ativan together. Explain that Dr. Butler was informed that she would like to speak with her regarding pain management and when she comes in to see her she can let her know what pain medication regimen works well for her. Patient says that she is doing okay at this time and hopes that she does not have another "pain attack". Patient asks if she can get her Estrace vaginal cream at this time beings she missed both doses last week as she takes it on Saturday and . Explain that I would speak with the pharmacist to see if they can put in the system for her to get a dose now and keep on the schedule for Saturday and . Patient verbalizes understanding. Denies any additional needs at this time.
--- NOTE | 2020-08-13 14:06 | NUR ---
Call made to pharmacy to speak with pharmacist regarding estrace cream. Pharmacist not available at the time and the [facility] will have pharmacist call this nurse.
--- NOTE | 2020-08-13 17:05 | NUR ---
Patient calls out and is requesting Prilosec. Spoke with Dr. Butler and orders received. Will administer once approved from pharmacy.
--- NOTE | 2020-08-13 17:51 | NUR ---
Edward was relayed to this nurse that the patient spouse is upset is on face time on the patient phone because he needs an update regarding patient status. This nurse goes to patient room and she is lying in bed with eyes open. Patient is not on phone at this time. Explain to the patient that I was informed that her spouse is upset regarding her care and is wanting information. Patient says that he is not upset and eveerything is fine. Ask if we need to get him on face time while in the room at this time and patient wants to wait. Patient provided Protonix as ordered. Patient then gets nauseated and begins to vomit. Attempt to contact pharmacy to get phenergan, no answer. Will mix phenergan with charge nurse at this time.
--- NOTE | 2020-08-13 18:08 | NUR ---
Phenergan started. Patient was up to bathroom to urinate and returned to bed. Offered to patient to call spouse to see what questions he has and to clarify any concerns and the patient says not at this time as he is eating dinner. Patient no longer vomitng, says nausea is better. Patient says that she started toeat jello and the nausea and vomiting started. Encouraged patient to hold off on eating until her nausea and vomiting is under control. Patient asks if derek spouse can come stay with her here in the hospital. Explain that we are not allowing visitors in the hospital at this time due to increase in COVID cases. Patient says that she understands.
--- NOTE | 2020-08-13 18:15 | NUR ---
Patient calls spouse and this nurse explains what happened through the day and medications that were administered. Spouse verbalizes understanding. Has concerns about the procedure that will be done on Saturday. Explain that we can have Dr. Jones contact him to have his questions and concerns clarified, spouse says that he would appreciate that. Spouse explains that he is just concerned as this is his and he wants to make sure that the correct things are being done for her. Explain that I understand his concerns and we want for him to get any questions or concerns that he has answered. Explain that we are trying our best to take care of his and unfortunately she has had a hard day with pain and nausea. Explain that it would be great to see what the biopsy results and recommendations deonte lbe from [facility] in regards to if the tumor can be removed or if they need to do chemo. Patient spouse says that they do not have that appointment until next Saturday. Spouse verbalizes understanding to all and says that he appreciates the staff taking care of his . Denies any additional questions at this time. Patient gets off phone with spouse. Patient asks if the Ativan was ordered for her to get if she was to have a "pain attack" again. Explain that it was a one time order and that an order was not placed for the Ativan. Patient says that she spoke with Dr. Luke salgado getting it ordered and she thought that the order was being placed. Relook through OCT and explain to the patient that Ativan was not placed as a PRN order. Patient says that she will retalk to Dr. Butler about getting it ordered for tomorrow. Patient says that she may try to rotate the phenergan and Zofran to see if that helps her more. Assist patient in changing gown and underwear and getting patient in comfortable position in bed. Patient denies any additional needs or concerns at this time.
--- NOTE | 2020-08-13 20:00 | NUR ---
PT HAS EMESIS IN BASIN. ASKING FOR NAUSEA MEDS. NOTED PROTONIX TABLET IN EMESIS BASIN, HAD NOT DISSOLVED AND WAS ADMINISTERED AT 1747. MEDICATED WITH ZOFRAN 4MG IV AT THIS TIME.
--- NOTE | 2020-08-13 21:30 | NUR ---
PT CONTINUES TO COMPLAIN OF EPIGASTRIC PAIN. DR KEELEY POTTS PROTONIX IV, DOSE GIVEN AT THIS TIME. HAS IV SITE TO RIGHT AC, NO REDNESS OR SWELLING. IS UP INDEPENDENTLY IN ROOM. HAS FENTANYL PATCH TO LEFT SHOULDER.
--- NOTE | 2020-08-13 23:10 | NUR ---
PT ASKING FOR ANTIEMETIC, TOO EARLY FOR ZOFRAN OR PHENERGAN. HAS NOT HAD EMESIS AT THIS TIME.
--- NOTE | 2020-08-14 00:08 | NUR ---
Pt reports continued nausea, medicated with Phenergan 12.5mg IV at this time. Pt denies pain.
[2020-08-14] MEDS ORDERED: REGLAN 10MG10 MG/TAB PO (02:50)
[2020-08-14 03:41] VITALS: BP 98/54; PULSE 63; TEMP 97.7
--- NOTE | 2020-08-14 03:55 | NUR ---
PT MEDICATED WITH ZOFRAN 4MG IVP FOR PERSISTENT NAUSEA WITHOUT EMESIS.
--- NOTE | 2020-08-14 06:46 | NUR ---
MEDICATED WITH SYNTHROID AND PHENERGAN 12.5MG IV AT THIS TIME. ASKING FOR MILK OF MAG AND COLACE, WILL FOLLOW UP WITH DOCTOR TODAY.
[2020-08-14 06:59] LABS: HEMATOCRIT 42.2 % (37.0-47.0); MEAN CELL VOLUME 91 fl (80.0-100.0); MEAN CORPUSCULAR HGB CONC 33 g/dl (33.0-37.0); PLATELET COUNT 330 K/mm3 (130-400); RED BLOOD COUNT 4.63 M/mm3 (4.10-5.30); REDCELL DISTRIBUTION WIDTH-CV 13.9 % (11.5-14.5)
[2020-08-14 07:16] LABS: CREATININE, serum 0.95 (0.52-1.25)
[2020-08-14 07:28] LABS: MEAN CORPUSCULAR HEMOGLOBIN 30 pg (27.0-31.0)
[2020-08-14 07:30] LABS: HEMOGLOBIN 14.1 g/dl (12.5-16.0)
[2020-08-14 07:47] VITALS: BP 165/75; PULSE 68; TEMP 97.2
[2020-08-14 09:20] LABS: BAND 1 % (0-10); BASOPHIL 3 % (0-2); EOSINOPHIL 1 % (0-4); LYMPHOCYTE 45 % (20.0-51.0); NEUTROPHILS 42 % (42.0-75.2); PLATELET ESTIMATE NORMAL (NORMAL)
--- NOTE | 2020-08-14 09:50 | NUR ---
PATIENT SHIFT ASSESSMENT COMPLETED. PATIENT CURRENTLY RATING HER ABDOMINAL PAIN A 6/10 ON A 0-10 SCALE, AND DESCRIBES IT A SHARP PAIN. PATIENT ALSO REPORTING NAUSEA THIS MORNING AND WAS GIVEN PRN ZOFRAN. PATIENT GIVEN ATIVAN PER DOCTOR REQUEST. WILL CONTINUE TO MONITOR.
[2020-08-14 11:49] VITALS: BP 124/73; PULSE 80; TEMP 99
--- NOTE | 2020-08-14 14:57 | NUR ---
Plans to return home: SW met with patient about DC plan. Pateint reports that she resides outside of [place], [facility] with spouse Sarath , PCP is Dr. Lewis. Patient reports that she uses [facility] for RX. Patient reports being too sleepy to complete the rest of the assessment. Will attempt later.
[2020-08-14 16:50] VITALS: BP 109/66; PULSE 65; TEMP 97.3
--- NOTE | 2020-08-14 19:00 | NUR ---
PATIENT GIVEN PRN PAIN, NAUSEA AND ANXIETY MEDICATIONS THROUGHOUT THE SHIFT WHEN NEEDED. PATIENT CURRENTLY ASLEEP IN ROOM. WILL REPORT OFF TO ONCOMING NURSE.
[2020-08-14 19:38] VITALS: BP 167/86; PULSE 75; TEMP 99
--- NOTE | 2020-08-14 20:34 | NUR ---
PT ASKING FOR NAUSEA MEDS. GIVEN ZOFRAN 4MG IVP AT THIS TIME. PT VERY DROWSY. HAS IVF TO RIGHT AC, NO REDNESS OR SWELLING. NOT ACTIVELY VOMITING AT THIS TIME.
--- NOTE | 2020-08-14 22:06 | NUR ---
MEDICATED WITH PHENERGAN 12.5MG IV FOR PERSISTENT NAUSEA. VERY DROWSY.
[2020-08-15] VITALS (19 sets, daily range): BP systolic 102–147; BP diastolic 57–95; PULSE 63–84; TEMP 97.9–98.8
--- NOTE | 2020-08-15 02:13 | NUR ---
PT ASKS FOR NAUSEA MED, UPON ARRIVAL, PT SNORING. ZOFRAN GIVEN.
--- NOTE | 2020-08-15 04:00 | NUR ---
PHENERGAN 12.5MG IV GIVEN FOR PERSISTENT NAUSEA. PT HAS HAD NO EMESIS THIS SHIFT.
[2020-08-15 07:39] LABS: BASO % 0.4 % (0.0-2.0); EOS # 0.4 (0.0-0.7); GRAN # 3.9 (1.4-6.5); GRAN % 56.4 % (42.2-75.2); HEMOGLOBIN 12.3 g/dl (12.5-16.0); LYMPH # 2.2 (1.2-3.4); LYMPH % 30.7 % (20.0-51.0); MEAN CELL VOLUME 93 fl (80.0-100.0); MEAN CORPUSCULAR HEMOGLOBIN 30 pg (27.0-31.0); MEAN CORPUSCULAR HGB CONC 32 g/dl (33.0-37.0); MEAN PLATELET VOLUME 10.2 fl (7.4-10.4); MONO # 0.5 (0.1-0.6); MONO % 7.4 % (1.7-9.3); PLATELET COUNT 353 K/mm3 (130-400); RED BLOOD COUNT 4.09 M/mm3 (4.10-5.30); REDCELL DISTRIBUTION WIDTH-CV 13.8 % (11.5-14.5)
[2020-08-15 07:48] LABS: CALCIUM 8.6 mg/dL (8.4-10.2); CREATININE, serum 0.98 (0.52-1.25); POTASSIUM 4.1 mmol/L (3.4-5.0)
--- NOTE | 2020-08-15 07:54 | NUR ---
Lying in bed with eyes open. Alert and oriented x4. Rates pain in abd 2/10, tolerable at this time. Having nausea, will see if patient is due for medication and if so administer as prescribed. Explain to the patient that she is not on the schedule for the nephrostomy tube placement so we will need to get this clarified. Patient verbalizes understanding. Denies additional needs.
--- NOTE | 2020-08-15 08:02 | NUR ---
Spoke with Dr. Jones regarding nephrostomy tube placement. He says that he placed order this morning and Dr. Gutierres in radiology will be performing the procedure. Explain to Dr. Jones when I spoke with the patient spouse on Saturday he had questions about the procedure. Dr Rowland says that he will call the spouse. Contacted radiology and they are looking at getting patient in for tube placement around 1400 today.
--- NOTE | 2020-08-15 08:20 | NUR ---
Discuss with the patient that she is on the schedule for nephrostomy tube placement for this afternoon around [address] Jones will also contact her to get his questions and concerns clarified. Review consent for procedure with the patient. Patient signs consent, will place on chart. Denies any additional needs or concerns at this time.
--- NOTE | 2020-08-15 10:31 | NUR ---
Rating pain in mid abd "anywhere from a 6-10" and requests pain medication. Administer as prescribed. Patient also requests phenergan, awaiting pharmacy to bring to this nurse and patient aware.
--- NOTE | 2020-08-15 10:42 | NUR ---
Pharmacy brought up phenergan, administer at this time. Patient says that the Dilaudid is just not completely helping with the pain and she requests Ativan as well. Will administer as prescribed.
--- NOTE | 2020-08-15 11:25 | NUR ---
First visit from the lobby attendant. prayed with patient. No other needs right now.
--- NOTE | 2020-08-15 11:40 | NUR ---
Lying in bed with eyes closed. Opens eyes when name called out. Denies pain or nausea. Patient drowsy and falls back to sleep. Explain to the patient that I would keep checking on her and to let us know if she needs anything. Patient opened eyes when she was spoken to, says okay, and goes back to sleep.
--- NOTE | 2020-08-15 13:20 | NUR ---
Lying in bed with eyes open. Asks if she needs to take her underwear off before going to procedure. Explain that she should and that they normally call prior to coming up to get her and I will let her know when they call. Patient rates pain in low abd 1/10 at this time, no nausea. Denies additional needs.
[2020-08-15 14:24] LABS: INR 1.3 (0.8-3.0)
[2020-08-15 14:26] LABS: CREATININE, serum 1.13 (0.52-1.25)
--- NOTE | 2020-08-15 14:54 | NUR ---
Patient having nausea and requests Zofran, administer as prescribed. CT staff here to take patient for neph tube placement via bed at this time.
--- NOTE | 2020-08-15 15:10 | NUR ---
procedure started, Dr Gutierres here, versed 1mg iv given over 1 min and fentanyl 50mcg iv given over 2 min.
--- NOTE | 2020-08-15 15:25 | NUR ---
repeated 25mcg of fentanyl due to increase discomfort with guide wire, pt remains alert
--- NOTE | 2020-08-15 15:30 | NUR ---
pt restless, states is uncomfortable at this point of procedure, repeated versed 1mg iv per Dr Gutierres
--- NOTE | 2020-08-15 15:35 | NUR ---
sutures being placed, repeated fentanyl 25mcg iv with good results, no furter discomfort
--- NOTE | 2020-08-15 15:40 | NUR ---
procedure completed, tegraderm in place with drainage bage, approx 10-20cc of urine in bag. pt rolled over to bed, able to help lift self up in bed, report called to 3rd floor nurse, and transported via bed to room
--- NOTE | 2020-08-15 15:58 | NUR ---
Patient back to room via bed. Alert and oriented x4. Says "I feel better". Only has pain with taking deep breath. Denies nausea. Dressing to left flank area CDI. Nephrostomy tube intact draining pink colored drainage into bag. Bag laying on bed beside patient. Patient denies additional needs at this time.
--- NOTE | 2020-08-15 16:17 | NUR ---
Patient says that her spouse did not get a call from Dr. Gutierres on how the procedure went. Contact CT department and they will see if Dr. Gutierres will call the spouse and let this nurse know. Patient doing well at this time. Water provided.
--- NOTE | 2020-08-15 17:11 | NUR ---
Patient calls requesting phenergan and Dilaudid. Says that anytime she moves, breathes or coughs her pain is a 8/0, administer Dilaudid as prescribed. Contacted pharmacy and they sent up phenergan for the patient, will administer at this time. Patient is resting in bed. Nephrostomy site CDI, light pink drainage noted inbag. Denies additional needs.
--- NOTE | 2020-08-15 18:16 | NUR ---
Sitting up in bed talking on phone. Minimal pain at this time. Nausea better. Denies needs.
--- NOTE | 2020-08-15 19:05 | NUR ---
Received report from Lena. Seen patient awake, lying in bed. She is alert and oriented. She denies pain and nausea right now. Nephrostomy tube intact and draining well. With dressing on her left back. Call light within reach.
--- NOTE | 2020-08-15 21:00 | NUR ---
Estradiol not given. Patient states she already had one this morning. Patient states pain of 3/10 and doesn't want Dilaudid for now. She requested for Zofran for her nausea. Drained nephrostomy tube.
[2020-08-16 00:12] VITALS: BP 119/65; PULSE 68; TEMP 97.6
[2020-08-16 04:01] VITALS: BP 118/69; PULSE 57; TEMP 98
--- NOTE | 2020-08-16 06:25 | NUR ---
Patient still with nausea episodes and pain. Dilaudid, Phenergan and Zofran were given. Dressing on her left back is clean, dry and intact.
[2020-08-16 07:16] VITALS: BP 122/64; PULSE 66; TEMP 98.7
--- NOTE | 2020-08-16 11:41 | NUR ---
The patient is to tentatively d/c tomorrow. SW met with the patient to follow up and review d/c plan. The patient states that she is sleepy, but doing better. She states that she is ready to get back home and is hopeful to not have any more nausea. She had no concerns for SW about returning home. SW to follow as needed.
[2020-08-16 11:55] VITALS: BP 103/72; PULSE 72; TEMP 98.8
--- NOTE | 2020-08-16 14:22 | NUR ---
Initial visit; Patient thanked Doctor Chiropractic for looking in on her and told Doctor Chiropractic that she has Stage 4 Colon Cancer. Doctor Chiropractic spoke with Betty damon and then offered prayer. Doctor Chiropractic let Betty know she is available to listen and pray again. Betty thanked post partum nurse who will check on Betty again tomorrow.
--- NOTE | 2020-08-16 16:55 | NUR ---
Contacted Lena SUAREZ, patient complaining of increased pain states its worse than previous days. Medications have been given per orders. No new orders at this time.
[2020-08-16 17:07] VITALS: BP 164/79; PULSE 72; TEMP 98.2
--- NOTE | 2020-08-16 19:32 | NUR ---
Patient has done well throughout the day, tolerating diet better this afternoon. Potassium infusing per orders at decreased rate due to burning. Patient has requested pain medications throughout the day, given per orders. Having clear yellow urine from neph tube, flushed as needed. Iv restarted to left forarm x 1 attempt this afternoon due to previous site leaking. Denies further needs at this time. Reported off to manufacturing shift supervisor.
--- NOTE | 2020-08-16 19:35 | NUR ---
Received report from Fely. Seen patient awake in bed. She denies pain right now. Nephrotomy tube draining well. Dressing at the back is clean, dry and intact. No complains of nausea. Call light within reach.
[2020-08-16 19:59] VITALS: BP 131/63; PULSE 75; TEMP 99.3
--- NOTE | 2020-08-16 20:45 | NUR ---
Patient complains of mild pain and nausea. Dialudid and Zofran given. Nephrostomy tube drained.
[2020-08-17] VITALS (7 sets, daily range): BP systolic 108–137; BP diastolic 51–73; PULSE 58–72; TEMP 97.8–99.5
--- NOTE | 2020-08-17 06:43 | NUR ---
Patient still would request for Zofran for her nausea. Denies pain this morning. Dilaudid given once last night.
--- NOTE | 2020-08-17 09:27 | NUR ---
The patient's nurse staffed with this Business Intelligence Manager regarding the patient possibly qualifying for [facility] Bed. ELISA contacted Carla with [facility] regarding the referral. The team will review it then she will inform this SW of their decision.
--- NOTE | 2020-08-17 09:43 | NUR ---
Follow-up visit; Patient having some concerns about where she is going when she is discharged. Cdl Flatbed Truck Driver offered encouragement and after having spoken with a Director Nicu let Betty know the Director Nicu had a plan to meet with her to discuss her options.
[2020-08-17] MEDS ORDERED: ZOFRAN INJ4 MG/2 ML IV (16:03)
--- NOTE | 2020-08-17 16:36 | NUR ---
Carla, at [facility], reports that they have declined the patient, due to the patient being independent in her room. The patient's RN then informed ELISA that the patient is going to be prescribed IV Zofran when she returns home. ELISA contacted the patient's preferred pharmacy, [facility] in [place] [facility], to inquire if they can fill this prescription. The pharmacist reports that they rarely ever feel anything IV and is unsure if they can. He states that the hospital can send them a script for this and then he can find out. ELISA contacted [facility] to inquire if they have the med. The pharmacist reports that they do have the IV Zofran in stock. She states that IV Zofran is very expensive and does not know if insurance will pay for it. ELISA then met with the patient to review d/c plan and to update on the above information. The patient's , Sarath, was on speaker phone. The patient and her report that they feel comfortable administering the IV Zofran on their own. The patient's reports that [facility] is out of network with their insurance. They would rather use their preferred pharmacy, [facility] in [place] [facility], and see what insurance covers for the med. ELISA also discussed home health services. The patient was interested in this and chose [facility]. ELISA contacted and faxed a referral to Ana Laura at [facility]. Ana Laura reports that she needs to check with the [place] office, on whether they take the patient's insurance. ELISA obtained the IV Zofran script from the hospitalist and provided the script to other ELISA, Ashlyn. The patient's , Sarath, then contacted this ELISA back. Sarath expressed his frustrations and his concerns. He would like to talk to a doctor or PA. ELISA notified the PA and requested that they give Sarath a call.
--- NOTE | 2020-08-17 17:00 | NUR ---
ELISA contacted Chaparro with the [facility]. He would like the script faxed to them. ELISA faxed script. He will check to see if the Zofran can be ordered or if the have it in stock. He will also check patient's insurance. Chaparro states he will likely need a script for the saline flush too. ELISA collaborated the above information with the patient's nurse.
--- NOTE | 2020-08-17 18:00 | NUR ---
Attempted to get patient placed somewhere today. Was not successful. Patient at this time is planning to go home and give herself IV zofran for nausea. She did not have pain today that required pain medications. She has good output from her nephrostomy tube. Output is light yellow/pink. No clots noted. Had her practice giving herself zofran twice this afternoon and she did good with it. Patient is a nurse. PICC line placed earlier today. Patients Neph tube started leaking. It is leaking at the connector, not the bag. We changed it and so far it is not leaking. Explained will irving jenkins and see about finding a replacement tomorrow. No other changes at this time. Call light within reach.
--- NOTE | 2020-08-17 19:15 | NUR ---
Received report from Flavia. Seen patient awake in bed. She denies pain. Still with some nausea. She has been giving herself Zofran IV assisted by the bedside nurse for her to be able to be comfortable when she gets home. She requested for tonight that if she needs one, if I can give it since she might be sleepy to do it for herself. Call light within reach.
--- NOTE | 2020-08-17 21:00 | NUR ---
Patient called saying her nephrostomy tube is leaking again. It was on the connector. Called Thomas DOUGHERTY to double check where the leak is coming from. Connector was tightened and place a new dry towel underneath the bag to see if it would leak again.
--- NOTE | 2020-08-18 01:18 | NUR ---
Patient requesting for Zofran. She denies pain. Nephrostomy tube connector not leaking anymore.
[2020-08-18 04:28] VITALS: BP 124/62; PULSE 63; TEMP 99.1
--- NOTE | 2020-08-18 07:05 | NUR ---
Patient had uneventful night. She denies pain. Zofran given one time last night. No episodes of leaking on her nephrostomy tube.
[2020-08-18 08:00] VITALS: BP 136/66; PULSE 69; TEMP 97.8
[2020-08-18] MEDS ORDERED: LEXAPRO 10MG10 MG PO (08:11)
[2020-08-18] MEDS ORDERED: BD POSIFLUSH SF10 ML IJ (08:57)
[2020-08-18 09:04] LABS: CREATININE, serum 0.95 (0.52-1.25); POTASSIUM 3.9 mmol/L (3.4-5.0)
--- NOTE | 2020-08-18 10:32 | NUR ---
ELISA contacted [facility] in [employer] to follow up on the IV Zofran. Rosalie, at [facility], reports that they are unable to fill any IV medications. ELISA updated the patient's , Sarath. Sarath wants to make sure the pharmacy is in network with the patient's insurance. ELISA contacted [facility] and [facility]. They do not have the med in stock. Delon reports that they do not fill IV medications. All three pharmacies reports that they believe they are in network with [facility] though. ELISA then contacted [facility]. The pharmacist reports that [facility] already forwarded the IV Zofran script to them. The pharmacist reports that she checked with the patient's insurance and they will not pay for the IV Zofran. She reports that the total for the IV Zofran is only $35.70 though. Liza, at [facility], reports that they can accept the patient and that they are in network with the patient's insurance. Their [place] office checked the patient's insurance plan and for the patient's 2019 plan, everything is covered at 100%. Starting tomorrow, 08/19/2020, the patient will have a $1,500 deductible to pay before insurance covers anything. After that, insurance will cover 80/20 until her out of pocket is met, which is $5,500. An RN visit would cost approximately $170 until deductible and out of pocket are met. ELISA met with the patient to update. The patient reports that she would still like to pursue with home health for a little bit, to help with her dressing change on her drain and provide education to her . ELISA contacted and updated the patient's , Sarath, on the above information. Sarath is agreeable to getting the patient's IV Zofran at [facility]. Sarath is interested in [facility] coming tonight to help. ELISA informed Liza at [facility] of this. Liza reports that they will come see the patient tonight and will call the patient to schedule a time. ELISA informed Sarath. ELISA updated the patient's RN on the above information. No additional needs at this time.
[2020-08-18 11:03] VITALS: BP 178/87; PULSE 65; TEMP 98.5
[2020-08-18] MEDS ORDERED: FENTANYL 50MCG TD (11:31)
--- NOTE | 2020-08-18 12:30 | NUR ---
Patient is discharging today. We are working on getting all her orders and medications figured out. She is aware it may take a few hours. She got up to have a bowel movement and her pain jumped up to about 8 on a 0-10 scale. She stated that has not happened with previous bowel movements. We discussed patient medications ordered and how often she can have them. Also discussed what she will be discharged with at home for pain coverage. Denies nausea at this time. She stated she was also having some anxiety about the pain, ativan given. No other changes at this time. Call light within reach. Bed alarm on.
--- NOTE | 2020-08-18 15:45 | NUR ---
Patient is discharging home. Discharge instructions discussed with patient. Explained how to trouble shoot any issues she might have with her PICC line. Explained to cover the drain and PICC line when she showers. Discussed how to drain her Neph tube. Sent her with a few supplies for dressing changes to Neph tube site per request from home health nurse. Her is picking up her flushes and zofran from the pharmacy. 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 Explained her medication changes. No questions verbalized. Explained when her follow up appointments are. Copies of discharge instructions sent with patient. All belongings packed up and sent with patient. Patient walked out via wheel chair by Jyothi BUCKLEY.
[2020-09-06] MEDS ORDERED: COLACE 100100 MG/CAP PO (08:10)
[2020-09-06] MEDS ORDERED: MIRALAX PA17 GM/Dose PO (08:11)
[2020-09-06] MEDS ORDERED: ZOLOFT 25MG25 MG PO (08:12)
[2020-11-03] MEDS ORDERED: OXYCODONE H5 MG/5 ML PO (07:36)
[2020-12-19] MEDS ORDERED: KEPPRA750 MG PO (09:08)
[2020-12-19] MEDS ORDERED: LEVSIN0.125 M1 PO (09:11)
[2020-12-19] MEDS ORDERED: LEVOXYL0.1 MG PO (09:12)
[2020-12-19] MEDS ORDERED: PRILOSEC 20MG20 MG PO (09:13)
[2020-12-19] MEDS ORDERED: PHENERGAN25 MG RC (09:15)
[2021-04-18] MEDS ORDERED: PHENERGAN25 MG/ML IV (08:53)
[2021-04-18] MEDS ORDERED: ZOFRAN INJ4 MG/2 ML IV (08:54)
[2021-04-18] MEDS ORDERED: SENOKOT S 50 MG1 TAB PO (08:55)
[2021-04-18] MEDS ORDERED: ATIVAN 2MG/ML2 MG/ML IV (08:56)
[2021-04-18] MEDS ORDERED: ZOLOFT 25MG25 MG PO (08:56)
[2021-04-18] MEDS ORDERED: KEPPRA750 MG PO (08:56)
[2021-04-18] MEDS ORDERED: NYSTATIN OR100 MU/ML PO (09:03)
[2021-04-18] MEDS ORDERED: DILAUDID 2MG/2 MG/M1 IV ×2 (09:04→13:55)
== END 2020-08-18 15:45 | disposition home health service (06) | DRG 844 ==
LOC: COL.ER 09:16 → SURG 17:52
PROVIDERS: Emergency Medicine; Physician Assistant; Urology; ADMIT Hospitalist
PROC: 0T9430Z Drainage of Left Kidney Pelvis with Drainage Device, Percutaneous Approach (ICD-10-PCS; principal; 2020-08-15)
PROC: BT1FYZZ Fluoroscopy of Left Kidney, Ureter and Bladder using Other Contrast (ICD-10-PCS; 2020-08-15)
PROC: 02HV33Z Insertion of Infusion Device into Superior Vena Cava, Percutaneous Approach (ICD-10-PCS; 2020-08-17)
DX: C79.89 Secondary malignant neoplasm of other specified sites (principal); C18.9 Malignant neoplasm of colon, unspecified; N13.30 Unspecified hydronephrosis; R11.2 Nausea with vomiting, unspecified; E03.9 Hypothyroidism, unspecified; M79.2 Neuralgia and neuritis, unspecified; R19.09 Other intra-abdominal and pelvic swelling, mass and lump; E87.6 Hypokalemia; F32.9 Major depressive disorder, single episode, unspecified; R07.89 Other chest pain; Z79.891 Long term (current) use of opiate analgesic; Z90.710 Acquired absence of both cervix and uterus; Z90.49 Acquired absence of other specified parts of digestive tract; Z88.1 Allergy status to other antibiotic agents; Z88.5 Allergy status to narcotic agent
CPT/HCPCS: OP; 99232-AI; 99233-AI; 99239; A9284; C1751; C9113; G0378; J1170; J2060; J2250; J2405; J2550; J3010; J3480; J7030; Q9967

== ENCOUNTER → 2020-09-05 | Outpatient (CLI) | payer OTHER ==
[~2020-09-05] MED LIST changes: +BD POSIFLUSH SF10 ML IJ; +COLACE 100100 MG/CAP PO; +ESTRACE0.1 MG/GM VG; +FENTANYL 12MCG TD; +FENTANYL 50MCG TD; +LEXAPRO 10MG10 MG PO; +LYRICA 75MG CAP75 MG PO; +MIRALAX PA17 GM/Dose PO; +ZOFRAN INJ4 MG/2 ML IV; +ZOLOFT 25MG25 MG PO
== END ==
LOC: COL.RAD 11:34
DX: C19 Malignant neoplasm of rectosigmoid junction (principal)

== ENCOUNTER → 2020-09-06 | Outpatient (CLI) | payer OTHER ==
[~2020-09-06] VITALS: Ht 172.8 cm; Wt 74.5 kg
[2020-09-06] VITALS (7 sets, daily range): BP systolic 99–1010; BP diastolic 45–82; PULSE 58–68
--- NOTE | 2020-09-06 08:40 | NUR ---
PT RESTS ON CART, DR SANCHEZ HERE FOR NEPH TUBE REMOVAL, VERSED 1MG IV GIVEN AND FENTANYL 25 MCG IV. PROCEDURE COMPLETED AND 2X2 OVER RIGHT FLANK AREA, SITE IS CLEAN, NO REDNESS OR SWELLING. PT WAITING FOR CT SCAN NOW
--- NOTE | 2020-09-06 09:00 | NUR ---
PT TO CT SCANNER VIA W/C
--- NOTE | 2020-09-06 09:40 | NUR ---
DR SANCHEZ HERE IN RAD HOLDING AREA, PT ON STRETCHER ON RIGHT SIDE FOR REMOVAL OF NEPH TUBE. AREA AROUND TUBE, CLEAR, NO REDNESS OR SWELLING, IV VERSED 1MG IV AND FENTANYL 25MCG IV GIVEN ORDERED THROUGH PICC.
--- NOTE | 2020-09-06 09:45 | NUR ---
PROCEDURE COMPLETED, 2X2 ON LEFT FLANK SIDE, CLEAN AND DRY. NO C/O PAIN PT WAITING FOR CT SCANNER
--- NOTE | 2020-09-06 09:50 | NUR ---
PT UP IN W/C, TOLERATES WELL TO CT SCANNER AT 1000
== END ==
LOC: COL.RAD 07:38
DX: N13.1 Hydronephrosis with ureteral stricture, not elsewhere classified (principal)
CPT/HCPCS: J2250; J3010

== ENCOUNTER 2020-09-15 13:15 | Outpatient (CLI) | payer OTHER ==
[~2020-09-15] VITALS: Ht 172.7 cm; Wt 74.0 kg
--- NOTE | 2020-09-15 13:30 | NUR ---
Here for PICC assessment. Right upper arm PICC intact with both ports flushed with 10ml normal saline with red port with good blood return noted. purple port flushed hard with a blood return as incomplete obstruction. Will advise cath-suzette. EU RN informed.
[2020-09-15 15:20] VITALS: BP 121/57; PULSE 58; TEMP 98
== END 2020-09-15 19:40 | disposition home or self-care (01) ==
LOC: EUO 13:15
DX: C18.7 Malignant neoplasm of sigmoid colon (principal)
CPT/HCPCS: J2997

== ENCOUNTER 2020-10-01 13:10 | Emergency (ER) | payer OTHER ==
[~2020-10-01] VITALS: Ht 172.7 cm; Wt 72.7 kg
[2020-10-01 13:32] VITALS: TEMP 100.3
[2020-10-01 14:50] LABS: BASO % 0.6 % (0.0-2.0); EOS % 0.3 % (0-4.0); GRAN # 5.7 (1.4-6.5); GRAN % 85.3 % (42.2-75.2); HEMATOCRIT 40.3 % (37.0-47.0); HEMOGLOBIN 12.9 g/dl (12.5-16.0); LYMPH # 0.6 (1.2-3.4); LYMPH % 9.4 % (20.0-51.0); MEAN CELL VOLUME 87 fl (80.0-100.0); MEAN CORPUSCULAR HEMOGLOBIN 28 pg (27.0-31.0); MEAN CORPUSCULAR HGB CONC 32 g/dl (33.0-37.0); MEAN PLATELET VOLUME 11.6 fl (7.4-10.4); MONO # 0.3 (0.1-0.6); MONO % 4.1 % (1.7-9.3); PLATELET COUNT 199 K/mm3 (130-400); RED BLOOD COUNT 4.65 M/mm3 (4.10-5.30); REDCELL DISTRIBUTION WIDTH-CV 14.2 % (11.5-14.5)
[2020-10-01 15:03] LABS: ALBUMIN 4.6 gm/dL (3.5-5.0); BILIRUBIN,TOTAL 0.5 mg/dL (0.0-1.0); CALCIUM 9.6 mg/dL (8.4-10.2); CREATININE, serum 1.12 (0.52-1.25); POTASSIUM 3.7 mmol/L (3.4-5.0); TOTAL PROTEIN 8.7 gm/dL (6.4-8.2)
[2020-10-01 16:44] LABS: COLLECTION METHOD CLEAN CATCH
[2020-10-01 16:50] LABS: PH 8 (5-8); SQUAMOUS EPITHELIAL 0-2 /hpf; URINE APPEARANCE Clear; URINE BACTERIA None Seen /hpf; URINE BILIRUBIN Negative (NEGATIVE); URINE BLOOD Negative (NEGATIVE); URINE COLOR Straw; URINE GLUCOSE Negative (NEGATIVE); URINE KETONE Negative (NEGATIVE); URINE LEUKOCYTE ESTERASE Trace (NEGATIVE); URINE NITRATE Negative (NEGATIVE); URINE PROTEIN(semi-quant) Negative (NEGATIVE); URINE RBC 0-2 /hpf; URINE UROBILINOGEN Negative (NEGATIVE)
[2020-10-01] MEDS ORDERED: PRILOSEC 20MG20 MG PO (16:54)
[2020-10-01 17:10] VITALS: BP 168/86; PULSE 70
[2020-10-02] MEDS ORDERED: PHENERGAN 25 TA25 MG PO (15:09)
[2020-10-02] MEDS ORDERED: FENTANYL 25 MCG TD (15:10)
[2020-10-02] MEDS ORDERED: ZOFRAN 4MG T4 MG/TAB PO (15:11)
[2020-10-02] MEDS ORDERED: ATIVAN 0.50.5 MG/TAB PO (15:12)
== END 2020-10-01 17:10 | disposition home or self-care (01) ==
LOC: COL.ER 13:10
PROVIDERS: Family Medicine
DX: R10.13 Epigastric pain (principal); R11.2 Nausea with vomiting, unspecified; E87.6 Hypokalemia; Z20.822 Contact with and (suspected) exposure to COVID-19; Z88.6 Allergy status to analgesic agent; Z88.8 Allergy status to other drugs, medicaments and biological substances; Z85.038 Personal history of other malignant neoplasm of large intestine
CPT/HCPCS: C9113; J1170; J2550; J7120; Q9967

== ENCOUNTER 2020-10-02 09:36 | Inpatient (IN) | payer OTHER ==
[~2020-10-02 09:36] MED LIST changes: +PRILOSEC 20MG20 MG PO
[2020-10-02 10:03] LABS: HEMATOCRIT 44.2 % (37.0-47.0); HEMOGLOBIN 14.3 g/dl (12.5-16.0); MEAN CELL VOLUME 86 fl (80.0-100.0); MEAN CORPUSCULAR HEMOGLOBIN 28 pg (27.0-31.0); MEAN CORPUSCULAR HGB CONC 32 g/dl (33.0-37.0); PLATELET COUNT 287 K/mm3 (130-400); RED BLOOD COUNT 5.15 M/mm3 (4.10-5.30); REDCELL DISTRIBUTION WIDTH-CV 14.3 % (11.5-14.5)
[2020-10-02 10:13] LABS: ALBUMIN 5.4 gm/dL (3.5-5.0); BILIRUBIN,TOTAL 0.7 mg/dL (0.0-1.0); CREATININE, serum 1.23 (0.52-1.25); POTASSIUM 3.8 mmol/L (3.4-5.0); TOTAL PROTEIN 10.4 gm/dL (6.4-8.2)
[2020-10-02 10:20] LABS: LYMPHOCYTE 1 % (20.0-51.0); NEUTROPHILS 96 % (42.0-75.2)
[2020-10-02 10:21] LABS: PLATELET ESTIMATE NORMAL (NORMAL)
[2020-10-02 10:43] LABS: TSH w REFLEX 14.1 uIU/mL (0.465-4.680)
[2020-10-02 12:49] VITALS: BP 180/83; PULSE 93; TEMP 97.9
--- NOTE | 2020-10-02 13:00 | NUR ---
Admission assessment completed at this time to the best of my ability given the state of the patients condition, patient was screaming for pain meds as the ER staff wheeled her down the hallway to her room 318/ I met them in the room and helped transfer her from ER stretcher to the bed, she continuously demanded "the strongest pain meds you have right now", I explained to the patient once we got her settled I would go directly to speak with the attending physican about her care, she at this time was unable to follow commands or answer questions appropratley at she was hysterical about being in pain and continued to demand pain medications, patient did not appear to be in any resp.distress/ lungs CTA, heart regular/ slightly tachycardic upon arrival, distal pulses are palpable, no skin issues/ breakdown noted, patient did not have a home medication list and when asked about home meds she said "I dont know", she continued to thrash around in bed and demand pain meds all the while, I called and informed him about the patient condition and request and he said he would be in to see her within the next 15 minutes, i explained this to the patient whom was angry and continued to demand pain medications "right now", at this time I then called her to get a little more information/ he too was obvioulsy upset and dishoveled in our conversation and stated "the medical community here sucks" because he already told EMS her medications, I explained that we go over medications list anytime a patient moves to a different department as a safety measure to insure accuracy of meds, he did read off all her meds to me over the phone and stated he was unsure what and when she had taken any of them last and that he would come to the hospital when he could, patient has a right upper arm PICC line in place that I am unsure of at this time when/ where that was placed / reports he uses this at home for her Zofran administration, bed alarm set at this time, seiz p/c in place
--- NOTE | 2020-10-02 13:45 | NUR ---
Patient arrived at this time and is very upset, myself and went in and discussed plan of care with the patient and , I gave patient some IV Fentanyl at that time as well per orders, was appreciative and verbalized understanding of plan of care, patient appeared to get some relief from IV pain medicatons, will continue to monitor
[2020-10-02] MEDS ORDERED: PHENERGAN 25 TA25 MG PO (15:09)
[2020-10-02] MEDS ORDERED: FENTANYL 25 MCG TD (15:10)
[2020-10-02] MEDS ORDERED: ZOFRAN 4MG T4 MG/TAB PO (15:11)
[2020-10-02] MEDS ORDERED: ATIVAN 0.50.5 MG/TAB PO (15:12)
[2020-10-02 20:00] VITALS: BP 165/85; PULSE 84; TEMP 98.8
[2020-10-02 23:00] VITALS: BP 163/86; PULSE 85; TEMP 99.5
[2020-10-03 03:59] VITALS: BP 153/93; PULSE 81; TEMP 99.2
[2020-10-03 06:05] LABS: CALCIUM 9.2 mg/dL (8.4-10.2); CREATININE, serum 1.01 (0.52-1.25); POTASSIUM 3.3 mmol/L (3.4-5.0)
[2020-10-03 07:45] VITALS: BP 154/84; PULSE 84; TEMP 98.3
[2020-10-03 07:56] LABS: HEMATOCRIT 39.3 % (37.0-47.0); HEMOGLOBIN 12.7 g/dl (12.5-16.0); MEAN CELL VOLUME 87 fl (80.0-100.0); MEAN CORPUSCULAR HEMOGLOBIN 28 pg (27.0-31.0); MEAN CORPUSCULAR HGB CONC 32 g/dl (33.0-37.0); PLATELET COUNT 228 K/mm3 (130-400); REDCELL DISTRIBUTION WIDTH-CV 14.6 % (11.5-14.5)
--- NOTE | 2020-10-03 08:30 | NUR ---
PT EXTREMELY DROWSY IN THE ROOM, WOULD NOT OPEN EYES FOR ME IN ROOM, WOULD RESPOND DELAYED, PT REPORTS NAUSEA, REPORTS PAIN BUT "IF I DON'T MOVE I DON'T HAVE ANY". PAIN MEDS NOT GIVEN DUE TO PT LETHARGY. PT MEDICATIONS NOT GIVEN BECAUSE PT WOULD NOT OPEN EYES TO TAKE THEM, PT WOULD FALL ASLEEP RIGHT AFTER FINISHING HER SENTENCE. NO OTHER NEEDS.
--- NOTE | 2020-10-03 09:39 | NUR ---
pt complaining of nausea, zofran given, pt still not very responsive to me, tori SUAREZ aware.
--- NOTE | 2020-10-03 10:49 | NUR ---
Initial visit; Patient awake, Calender Roll Press Operator spoke with her and offered a blessing. Betty not feeling like interacting. Calender Roll Press Operator will continue to keep her in Calender Roll Press Operator's prayers.
[2020-10-03 11:50] LABS: COLLECTION METHOD CLEAN CATCH
[2020-10-03 11:57] LABS: MUCOUS Present /lpf; PH 6 (5-8); URINE APPEARANCE Hazy; URINE BACTERIA None Seen /hpf; URINE BILIRUBIN Negative (NEGATIVE); URINE BLOOD Negative (NEGATIVE); URINE COLOR Yellow; URINE GLUCOSE Negative (NEGATIVE); URINE KETONE Trace (NEGATIVE); URINE LEUKOCYTE ESTERASE 1+ (NEGATIVE); URINE NITRATE Negative (NEGATIVE); URINE PROTEIN(semi-quant) 2+ (NEGATIVE); URINE RBC 0-2 /hpf; URINE UROBILINOGEN Negative (NEGATIVE)
[2020-10-03 12:22] LABS: TRICYCLIC ANTIDEPRESS URINE NEGATIVE
[2020-10-03 12:55] VITALS: BP 163/86; BP 163/89; PULSE 79; TEMP 98.3
--- NOTE | 2020-10-03 13:30 | NUR ---
Patient admitted with PICC right upper arm, dressing dated 09/25/20. no chlorhexidine impregnated disk present. PICC dressing change done with sterile technique with insertion site cleansed with cloraprep x 1, chlorhexidine impregnated disk applied, skin prep, stat lock, and tegaderm applied. no sings or symptoms of IV complications noted. no concerns voiced.
--- NOTE | 2020-10-03 16:31 | NUR ---
TALKED TO AND DAUGHTER MULTIPLE TIMES DURING THE DAY WITH UPDATES. DAUGHTER PHONE NUMBER GIVEN TO PHYSICIAN TO GO OVER MRI RESULTS.
[2020-10-03 16:40] VITALS: BP 161/94; PULSE 72; TEMP 98.3
--- NOTE | 2020-10-03 17:54 | NUR ---
PT APPEARS CONFUSED, PT REPORTING PAIN LATER IN DAY RELIEVED BY ROXANOL, NAUSEA RELIEVED WITH ZOFRAN AND PHENERGAN. PT USING BEDPAN BECAUSE PT STATED "IM COLD". PT HAD EEG AND MRI. FAMILY UPDATED BY NURSING STAFF. DROWSY IN ROOM MOST OF DAY, NO OTHER NEEDS.
--- NOTE | 2020-10-03 20:00 | NUR ---
Bedside shift report received from LADONNA Encarnacion. At time of assessment, is at bedside; patient is awake, drowsy in bed. She complains of upper abdominal pain 8/10 and PRN Roxanol 5 mg is administered. On her left hand to her left forearm a red, pitechiael rash is observed; ERICK Ko is notified and this RN will continue to closely monitor. The rash does not cause patient any discomfort. Comfort measures met; call light in reach.
[2020-10-03 21:02] VITALS: BP 163/87; PULSE 70; TEMP 100.1
[2020-10-04] VITALS (7 sets, daily range): BP systolic 107–174; BP diastolic 56–88; PULSE 57–80; TEMP 98.1–99.4
--- NOTE | 2020-10-04 07:00 | NUR ---
Report with LADONNA Malik. Pt resting in bed with eyes closed, resp even and unlabored. Call light in reach.
--- NOTE | 2020-10-04 07:55 | NUR ---
Assessment complete. Pt recently returned to room following LP, awake and alert at this time, denies pain or nausea. Pt aware of activity restrictions, verbalizes understanding to lay flat for one hour. Bed placed in reverse trendelenburg to allow pt to drink water. Physical assessment unremarkable. PICC line to right upper arm without s/s of infiltration or phlebitis, blood pulled from purple port for sched labs, no blood return from red port. No further needs reported. Call light in reach.
[2020-10-04 08:11] LABS: BASO # 0.1 (0.0-0.2); BASO % 0.8 % (0.0-2.0); EOS # 0.1 (0.0-0.7); EOS % 0.8 % (0-4.0); GRAN # 5.7 (1.4-6.5); GRAN % 62.7 % (42.2-75.2); HEMATOCRIT 39.6 % (37.0-47.0); HEMOGLOBIN 12.3 g/dl (12.5-16.0); LYMPH # 2.4 (1.2-3.4); LYMPH % 26.2 % (20.0-51.0); MEAN CELL VOLUME 88 fl (80.0-100.0); MEAN CORPUSCULAR HEMOGLOBIN 28 pg (27.0-31.0); MEAN CORPUSCULAR HGB CONC 31 g/dl (33.0-37.0); MEAN PLATELET VOLUME 10.5 fl (7.4-10.4); MONO # 0.8 (0.1-0.6); MONO % 9.3 % (1.7-9.3); PLATELET COUNT 267 K/mm3 (130-400); RED BLOOD COUNT 4.48 M/mm3 (4.10-5.30); REDCELL DISTRIBUTION WIDTH-CV 14.4 % (11.5-14.5)
[2020-10-04 08:15] LABS: GLUCOSE,CSF 54 mg/dL (40-70); TOTAL PROTEIN,CSF 35 mg/dL (15-45)
[2020-10-04 08:25] LABS: CSF APPEARANCE CLEAR; CSF COLOR COLORLESS; CSF RBC < 1 /mm3 (0-0)
[2020-10-04 08:28] LABS: CALCIUM 9.6 mg/dL (8.4-10.2); CREATININE, serum 1.06 (0.52-1.25); MAGNESIUM 2.1 mg/dL (1.6-2.3)
[2020-10-04 08:44] LABS: CSF MONONUCLEAR 100 % (70-100); CSF POLYMORPHONUCLEAR 0 % (0-6)
--- NOTE | 2020-10-04 09:35 | NUR ---
Attempted to get blood return from red port of PICC line, slight resistance with flush and no blood return. Margret RN AIV aware. Pt reports feeling better and requesting an advanced diet from clear liquids. Provider notified.
--- NOTE | 2020-10-04 10:19 | NUR ---
Follow-up visit; Patient thanked Fold Skiver for looking in on her again today. Fold Skiver pleased to find Gary doing much better. She is rested and not in pain. Fold Skiver offered God's blessings and will continue to keep her in Fold Skiver's prayers.
--- NOTE | 2020-10-04 10:20 | NUR ---
Cathflo instilled in red lumen of PICC line per orders/protocol. gambling monitor obtained, will be placed when Echo complete.
--- NOTE | 2020-10-04 10:55 | NUR ---
Blood return obtained from red lumen of PICC line, 10 ml wasted and line flushed with NS.
--- NOTE | 2020-10-04 11:14 | NUR ---
Head Refrigerating Engineer attended clinical rounds with the team. The patient's and daughter were on speaker phone. Hospitalist answered all questions.
--- NOTE | 2020-10-04 12:26 | NUR ---
Pt resting in bed with eyes closed, snoring intermittently, awakens briefly to stimuli but not awake enough at this time to safely swallow medication. Will attempt to administer medication again soon.
--- NOTE | 2020-10-04 14:36 | NUR ---
Filling Carrier met with the patient to complete intake. The patient lives in [place] with her , Sarath. The patient denies DME use and is independent with ADLs. The patient's PCP is Dr. Barton and jeanna receives medications from [facility] pharmacy. The patient does not have advanced directives in the EMR but states they are complete and designate Sarath. The patient plans to return home at discharge and has no concerns about doing so. Sarath will provide transporation. There are no additional needs at this time.
--- NOTE | 2020-10-04 19:10 | NUR ---
Report to LADONNA Malik.
--- NOTE | 2020-10-04 20:00 | NUR ---
Assessment complete. Patient is much more alert, less drowsy, than last night. She has no complaints of pain but does request zofran for nausea, which is adminstered at this time. is currently at bedside. Her left hand to forearm petichael rash from last night has improved and still does not cause any discomfort. No new concerns; Call light in reach.
[2020-10-05 04:07] VITALS: BP 107/64; PULSE 62; TEMP 98.3
[2020-10-05 07:09] LABS: BASO # 0.1 (0.0-0.2); EOS # 0.3 (0.0-0.7); EOS % 3.2 % (0-4.0); GRAN # 4.2 (1.4-6.5); GRAN % 50.9 % (42.2-75.2); HEMATOCRIT 40.8 % (37.0-47.0); HEMOGLOBIN 12.7 g/dl (12.5-16.0); LYMPH # 2.9 (1.2-3.4); MEAN CELL VOLUME 89 fl (80.0-100.0); MEAN CORPUSCULAR HEMOGLOBIN 28 pg (27.0-31.0); MEAN CORPUSCULAR HGB CONC 31 g/dl (33.0-37.0); MEAN PLATELET VOLUME 11.1 fl (7.4-10.4); MONO # 0.8 (0.1-0.6); MONO % 9.5 % (1.7-9.3); PLATELET COUNT 291 K/mm3 (130-400); RED BLOOD COUNT 4.58 M/mm3 (4.10-5.30); REDCELL DISTRIBUTION WIDTH-CV 14.5 % (11.5-14.5)
--- NOTE | 2020-10-05 07:10 | NUR ---
Pt resting in bed. Assessment completed. Telemetry on-HR regular. Pt reports "bladder pain" 01/26, primary nurse notified. Rt arm picc line clean and intact, wrapped w/ harish bandage. Bed rails padded. Call light in reach.
[2020-10-05 07:22] LABS: BILIRUBIN,TOTAL 0.4 mg/dL (0.0-1.0); CALCIUM 9.3 mg/dL (8.4-10.2); CREATININE, serum 1.13 (0.52-1.25); MAGNESIUM 2.1 mg/dL (1.6-2.3); POTASSIUM 3.6 mmol/L (3.4-5.0); TOTAL PROTEIN 7.3 gm/dL (6.4-8.2)
[2020-10-05 07:38] VITALS: BP 114/67; PULSE 62; TEMP 98.3
[2020-10-05] MEDS ORDERED: ZOFRAN INJ4 MG/2 ML IV (09:31)
[2020-10-05] MEDS ORDERED: OMNICEF 300MG300 MG PO (09:36)
[2020-10-05] MEDS ORDERED: KEPPRA1000 MG PO (09:40)
[2020-10-05] MEDS ORDERED: NORVASC 5MG5 MG/TAB PO (09:40)
[2020-10-05 11:00] VITALS: BP 94/59; PULSE 74; TEMP 98.5
--- NOTE | 2020-10-05 14:03 | NUR ---
Discharge instructions discussed with pt and all questions answered. Right upper PICC still in place and w/o S/S complication. Pt awaiting ride from .
--- NOTE | 2020-10-05 15:52 | NUR ---
Pt taken down to ED entrance via wheelchair by this RN and accompanied by . All belongings in possession.
[2020-10-06] MEDS ORDERED: PHENERGAN25 MG RC (05:36)
[2020-10-07 12:12] LABS: HSV 2 DNA PCR QUAL Not Detected (())
== END 2020-10-05 15:52 | disposition home or self-care (01) | DRG 71 ==
LOC: COL.ER 09:36 → MEDICAL 10:55
PROVIDERS: Emergency Medicine; Hospitalist; Physician Assistant; Psychiatry & Neurology Neurology
DX: I67.83 Posterior reversible encephalopathy syndrome (principal); C18.9 Malignant neoplasm of colon, unspecified; N39.0 Urinary tract infection, site not specified; E03.9 Hypothyroidism, unspecified; F32.9 Major depressive disorder, single episode, unspecified; G89.29 Other chronic pain; E87.6 Hypokalemia; N36.8 Other specified disorders of urethra; T45.1X5A Adverse effect of antineoplastic and immunosuppressive drugs, initial encounter; R11.2 Nausea with vomiting, unspecified; G62.9 Polyneuropathy, unspecified; Z88.1 Allergy status to other antibiotic agents; Z88.6 Allergy status to analgesic agent
CPT/HCPCS: OP; 99222-AI; 99233-AI; 99239; A9585; G0378; J0696; J1200; J1650; J1953; J2060; J2405; J2550; J2765; J2997; J3010; J3480

== ENCOUNTER 2020-10-06 02:59 | Emergency (ER) | payer OTHER ==
[~2020-10-06] VITALS: Ht 152.4 cm; Wt 72.7 kg
[~2020-10-06 02:59] MED LIST changes: +ATIVAN 0.50.5 MG/TAB PO; +KEPPRA1000 MG PO; +NORVASC 5MG5 MG/TAB PO
[2020-10-06 03:07] VITALS: TEMP 98.9
[2020-10-06 03:28] LABS: BASO % 0.4 % (0.0-2.0); EOS % 0.3 % (0-4.0); GRAN # 6.5 (1.4-6.5); GRAN % 84.5 % (42.2-75.2); HEMATOCRIT 45.1 % (37.0-47.0); HEMOGLOBIN 14.2 g/dl (12.5-16.0); LYMPH # 0.8 (1.2-3.4); LYMPH % 10.8 % (20.0-51.0); MEAN CELL VOLUME 87 fl (80.0-100.0); MEAN CORPUSCULAR HEMOGLOBIN 27 pg (27.0-31.0); MEAN CORPUSCULAR HGB CONC 32 g/dl (33.0-37.0); MEAN PLATELET VOLUME 10.8 fl (7.4-10.4); MONO # 0.3 (0.1-0.6); MONO % 3.7 % (1.7-9.3); PLATELET COUNT 297 K/mm3 (130-400); RED BLOOD COUNT 5.19 M/mm3 (4.10-5.30); REDCELL DISTRIBUTION WIDTH-CV 14.1 % (11.5-14.5)
[2020-10-06 03:39] LABS: ALBUMIN 4.4 gm/dL (3.5-5.0); BILIRUBIN,TOTAL 0.4 mg/dL (0.0-1.0); CALCIUM 9.8 mg/dL (8.4-10.2); CREATININE, serum 0.84 (0.52-1.25); POTASSIUM 3.8 mmol/L (3.4-5.0); TOTAL PROTEIN 8.6 gm/dL (6.4-8.2)
[2020-10-06 03:53] LABS: C-REACTIVE PROTEIN 0.6 mg/dL (0.0-0.9)
[2020-10-06] MEDS ORDERED: PHENERGAN25 MG RC (05:36)
[2020-10-06 06:55] VITALS: BP 169/98; PULSE 98
== END 2020-10-06 06:59 | disposition home or self-care (01) ==
LOC: COL.ER 02:59
PROVIDERS: Emergency Medicine
DX: R10.9 Unspecified abdominal pain (principal); R11.2 Nausea with vomiting, unspecified; E03.9 Hypothyroidism, unspecified; F32.9 Major depressive disorder, single episode, unspecified; R56.9 Unspecified convulsions; Z88.6 Allergy status to analgesic agent; Z88.1 Allergy status to other antibiotic agents; Z90.710 Acquired absence of both cervix and uterus; Z79.890 Hormone replacement therapy; Z85.038 Personal history of other malignant neoplasm of large intestine
CPT/HCPCS: J0780; J2060; J2550; J7030

== ENCOUNTER 2020-10-21 14:14 | Outpatient (CLI) | payer OTHER ==
[~2020-10-21 14:14] MED LIST changes: +PHENERGAN25 MG RC
--- NOTE | 2020-10-21 14:45 | NUR ---
Received a phone call from patient regarding not able to obtain a blood return from PICC. Patient advised to contact physician's office. order obtained to come to . patient here in with PICC intact right upper arm. Patient reports unable to obtain blood return since last "pain attack." Both ports flushed with 50 ml normal saline with patient coughing and position change. able to obtain a blood return from purple port. unable to obtain a blood return from red port. both ports flushed easily with no resistance. nurse will instill cath-suzette. patient advised.
--- NOTE | 2020-10-21 15:53 | NUR ---
CHELA Oswald reported she flushed [facility] PICC lines and reported red line not returning blood.Cathflow ordered.Upon return,I flushed and checked for blood return,blood return observed from both lines.[facility].No cathflow given.Pt escorted out via wheelchair by this nurse.
[2020-10-21 15:59] VITALS: BP 125/76; PULSE 74
[2020-11-03] MEDS ORDERED: OXYCODONE H5 MG/5 ML PO (07:36)
[2020-12-19] MEDS ORDERED: KEPPRA750 MG PO (09:08)
[2020-12-19] MEDS ORDERED: LEVSIN0.125 M1 PO (09:11)
[2020-12-19] MEDS ORDERED: LEVOXYL0.1 MG PO (09:12)
[2020-12-19] MEDS ORDERED: PRILOSEC 20MG20 MG PO (09:13)
[2020-12-19] MEDS ORDERED: PHENERGAN25 MG RC (09:15)
[2021-04-18] MEDS ORDERED: PHENERGAN25 MG/ML IV (08:53)
[2021-04-18] MEDS ORDERED: ZOFRAN INJ4 MG/2 ML IV (08:54)
[2021-04-18] MEDS ORDERED: SENOKOT S 50 MG1 TAB PO (08:55)
[2021-04-18] MEDS ORDERED: ZOLOFT 25MG25 MG PO (08:56)
[2021-04-18] MEDS ORDERED: KEPPRA750 MG PO (08:56)
[2021-04-18] MEDS ORDERED: ATIVAN 2MG/ML2 MG/ML IV (08:56)
[2021-04-18] MEDS ORDERED: NYSTATIN OR100 MU/ML PO (09:03)
[2021-04-18] MEDS ORDERED: DILAUDID 2MG/2 MG/M1 IV ×2 (09:04→13:55)
== END 2020-10-21 16:00 | disposition home or self-care (01) ==
LOC: EUO 14:14
DX: Z45.2 Encounter for adjustment and management of vascular access device (principal)

== ENCOUNTER 2020-10-28 07:32 | Emergency (ER) | payer OTHER ==
[~2020-10-28] VITALS: Ht 172.7 cm; Wt 72.7 kg
[2020-10-28 07:53] VITALS: TEMP 98.1
[2020-10-28 08:35] LABS: BASO # 0.1 (0.0-0.2); BASO % 0.8 % (0.0-2.0); EOS # 0.7 (0.0-0.7); EOS % 9.9 % (0-4.0); GRAN # 4.7 (1.4-6.5); GRAN % 71.6 % (42.2-75.2); LYMPH # 0.8 (1.2-3.4); LYMPH % 11.4 % (20.0-51.0); MEAN CELL VOLUME 84 fl (80.0-100.0); MEAN CORPUSCULAR HEMOGLOBIN 27 pg (27.0-31.0); MEAN CORPUSCULAR HGB CONC 33 g/dl (33.0-37.0); MONO # 0.4 (0.1-0.6); MONO % 6.1 % (1.7-9.3); PLATELET COUNT 176 K/mm3 (130-400); RED BLOOD COUNT 4.78 M/mm3 (4.10-5.30); REDCELL DISTRIBUTION WIDTH-CV 14.6 % (11.5-14.5)
[2020-10-28 08:45] LABS: ALBUMIN 4.4 gm/dL (3.5-5.0); BILIRUBIN,TOTAL 0.4 mg/dL (0.0-1.0); CALCIUM 9.5 mg/dL (8.4-10.2); CREATININE, serum 1.19 (0.52-1.25); POTASSIUM 3.8 mmol/L (3.4-5.0); TOTAL PROTEIN 8.8 gm/dL (6.4-8.2)
--- NOTE | 2020-10-28 10:00 | NUR ---
Received a call from ED nurse and unable to flush PICC and obtain a blood return. chest x ray done and reviewed. Patient reported no problems with PICC at home. Both ports flushed with 10 ml normal saline without difficulty. minimal blood return noted. insertion site with no chlorhexidine disk. sterile PICC dressing change done with insertion site cleansed with chloraprep x 1, chlorhexidine impregnated disk applied, skin prep, stat lock, and tegaderm applied. medication infused. both caps change and flush each lumen with 10ml normal saline with good blood return noted.
[2020-10-28 10:56] VITALS: BP 124/64; PULSE 89
[2020-11-03] MEDS ORDERED: OXYCODONE H5 MG/5 ML PO (07:36)
[2020-12-19] MEDS ORDERED: KEPPRA750 MG PO (09:08)
[2020-12-19] MEDS ORDERED: LEVSIN0.125 M1 PO (09:11)
[2020-12-19] MEDS ORDERED: LEVOXYL0.1 MG PO (09:12)
[2020-12-19] MEDS ORDERED: PRILOSEC 20MG20 MG PO (09:13)
[2020-12-19] MEDS ORDERED: PHENERGAN25 MG RC (09:15)
[2021-04-18] MEDS ORDERED: PHENERGAN25 MG/ML IV (08:53)
[2021-04-18] MEDS ORDERED: ZOFRAN INJ4 MG/2 ML IV (08:54)
[2021-04-18] MEDS ORDERED: SENOKOT S 50 MG1 TAB PO (08:55)
[2021-04-18] MEDS ORDERED: ATIVAN 2MG/ML2 MG/ML IV (08:56)
[2021-04-18] MEDS ORDERED: KEPPRA750 MG PO (08:56)
[2021-04-18] MEDS ORDERED: ZOLOFT 25MG25 MG PO (08:56)
[2021-04-18] MEDS ORDERED: NYSTATIN OR100 MU/ML PO (09:03)
[2021-04-18] MEDS ORDERED: DILAUDID 2MG/2 MG/M1 IV ×2 (09:04→13:55)
== END 2020-10-28 10:35 | disposition home or self-care (01) ==
LOC: COL.ER 07:32
PROVIDERS: Emergency Medicine
DX: R10.9 Unspecified abdominal pain (principal); R11.2 Nausea with vomiting, unspecified; Z90.710 Acquired absence of both cervix and uterus; Z88.1 Allergy status to other antibiotic agents; Z88.6 Allergy status to analgesic agent; Z85.038 Personal history of other malignant neoplasm of large intestine
CPT/HCPCS: J2550

== ENCOUNTER → 2020-11-03 | Outpatient (CLI) | payer OTHER ==
[2020-11-03] VITALS (19 sets, daily range): BP systolic 139–189; BP diastolic 92–115; PULSE 69–89
[~2020-11-03] VITALS: Ht 152.4 cm; Wt 70.6 kg
[~2020-11-03] MED LIST changes: +ATIVAN 2MG/ML2 MG/ML IV; +BACTRIM DS 8001 TAB PO; +DILAUDID 2MG/2 MG/M1 IM; +DILAUDID 2MG/2 MG/M1 IV; +KEPPRA750 MG PO; +LEVOXYL0.1 MG PO; +LEVSIN0.125 M1 PO; +NYSTATIN OR100 MU/ML PO; +OXYCODONE H5 MG/5 ML PO; +PHENERGAN25 MG/ML IV; +PROBIOTIC BLEN1 EACH PO; +SENOKOT S 50 MG1 TAB PO
--- NOTE | 2020-11-03 08:25 | NUR ---
P-T IS TAKEN TO CT PER WHEELCHAIR.PT IS ASSISTED ON TO CT TABLE. MONITORING EQUIPMENT PLACED.
--- NOTE | 2020-11-03 08:32 | NUR ---
PT GIVEN 1MG VERSED AND FENTANYL 50 MCG
--- NOTE | 2020-11-03 08:40 | NUR ---
PT GIVEN 1 MG VERSED RICKY LOPEZ
--- NOTE | 2020-11-03 08:45 | NUR ---
PT WAS GIVEN 50 MCG FOR DISCOMFORT RICKY LOPEZ
--- NOTE | 2020-11-03 10:50 | NUR ---
CALLED AND LEFT A VOICE MAIL THAT PT WAS DOING FINE. BP WAS HIGH AND SHE WOULD BE READY TO LEAVE AT 1130. [id number] CALLED AND REPORTED HE IS IN LOBBY AND READY TO TAKE HIS HOME. PT TAKEN TO LOBBY IN WHEELCHAIR BY STAFF.
== END ==
LOC: COL.RAD 07:00
DX: N13.1 Hydronephrosis with ureteral stricture, not elsewhere classified (principal); Z93.6 Other artificial openings of urinary tract status
CPT/HCPCS: J2250; J3010

== ENCOUNTER 2020-11-24 20:00 | Emergency (ER) | payer OTHER ==
[~2020-11-24] VITALS: Ht 175.3 cm; Wt 72.7 kg
[~2020-11-24 20:00] MED LIST changes: -ATIVAN 2MG/ML2 MG/ML IV; -BACTRIM DS 8001 TAB PO; -DILAUDID 2MG/2 MG/M1 IM; -DILAUDID 2MG/2 MG/M1 IV; -KEPPRA750 MG PO; -LEVOXYL0.1 MG PO; -LEVSIN0.125 M1 PO; -NYSTATIN OR100 MU/ML PO; -PHENERGAN25 MG/ML IV; -PROBIOTIC BLEN1 EACH PO; -SENOKOT S 50 MG1 TAB PO
[2020-11-24 20:09] VITALS: TEMP 97.4
[2020-11-24 20:42] LABS: BASO % 0.4 % (0.0-2.0); EOS # 0.1 (0.0-0.7); EOS % 1.8 % (0-4.0); GRAN # 5.6 (1.4-6.5); GRAN % 77.1 % (42.2-75.2); HEMATOCRIT 40.2 % (37.0-47.0); HEMOGLOBIN 13.2 g/dl (12.5-16.0); LYMPH # 1.2 (1.2-3.4); LYMPH % 15.7 % (20.0-51.0); MEAN CELL VOLUME 82 fl (80.0-100.0); MEAN CORPUSCULAR HEMOGLOBIN 27 pg (27.0-31.0); MEAN CORPUSCULAR HGB CONC 33 g/dl (33.0-37.0); MEAN PLATELET VOLUME 10.1 fl (7.4-10.4); MONO # 0.4 (0.1-0.6); MONO % 4.9 % (1.7-9.3); PLATELET COUNT 332 K/mm3 (130-400); RED BLOOD COUNT 4.89 M/mm3 (4.10-5.30); REDCELL DISTRIBUTION WIDTH-CV 15.4 % (11.5-14.5)
[2020-11-24 20:56] LABS: ALBUMIN 4.5 gm/dL (3.5-5.0); BILIRUBIN,TOTAL 0.3 mg/dL (0.0-1.0); C-REACTIVE PROTEIN 1.5 mg/dL (0.0-0.9); CALCIUM 9.6 mg/dL (8.4-10.2); CREATININE, serum 0.73 (0.52-1.25); MAGNESIUM 2.1 mg/dL (1.6-2.3); POTASSIUM 3.3 mmol/L (3.4-5.0); TOTAL PROTEIN 9.4 gm/dL (6.4-8.2)
[2020-11-24 22:15] LABS: COLLECTION METHOD CLEAN CATCH
[2020-11-24 22:21] LABS: MUCOUS Present /lpf; PH 7 (5-8); SQUAMOUS EPITHELIAL None Seen /hpf; URINE APPEARANCE Clear; URINE BACTERIA None Seen /hpf; URINE BILIRUBIN Negative (NEGATIVE); URINE BLOOD Negative (NEGATIVE); URINE COLOR Colorless; URINE GLUCOSE 1+ (NEGATIVE); URINE KETONE 1+ (NEGATIVE); URINE LEUKOCYTE ESTERASE Negative (NEGATIVE); URINE NITRATE Negative (NEGATIVE); URINE PROTEIN(semi-quant) Negative (NEGATIVE); URINE RBC 0-2 /hpf; URINE UROBILINOGEN Negative (NEGATIVE)
[2020-11-25 00:21] VITALS: BP 163/100; PULSE 80
[2020-12-19] MEDS ORDERED: KEPPRA750 MG PO (09:08)
[2020-12-19] MEDS ORDERED: LEVSIN0.125 M1 PO (09:11)
[2020-12-19] MEDS ORDERED: LEVOXYL0.1 MG PO (09:12)
[2020-12-19] MEDS ORDERED: PRILOSEC 20MG20 MG PO (09:13)
[2020-12-19] MEDS ORDERED: PHENERGAN25 MG RC (09:15)
[2021-04-18] MEDS ORDERED: PHENERGAN25 MG/ML IV (08:53)
[2021-04-18] MEDS ORDERED: ZOFRAN INJ4 MG/2 ML IV (08:54)
[2021-04-18] MEDS ORDERED: SENOKOT S 50 MG1 TAB PO (08:55)
[2021-04-18] MEDS ORDERED: KEPPRA750 MG PO (08:56)
[2021-04-18] MEDS ORDERED: ATIVAN 2MG/ML2 MG/ML IV (08:56)
[2021-04-18] MEDS ORDERED: ZOLOFT 25MG25 MG PO (08:56)
[2021-04-18] MEDS ORDERED: NYSTATIN OR100 MU/ML PO (09:03)
[2021-04-18] MEDS ORDERED: DILAUDID 2MG/2 MG/M1 IV ×2 (09:04→13:55)
== END 2020-11-25 01:00 | disposition home or self-care (01) ==
LOC: COL.ER 20:00
PROVIDERS: Emergency Medicine
DX: R10.9 Unspecified abdominal pain (principal); R11.2 Nausea with vomiting, unspecified; F32.9 Major depressive disorder, single episode, unspecified; G40.909 Epilepsy, unspecified, not intractable, without status epilepticus; Z96.0 Presence of urogenital implants; Z85.038 Personal history of other malignant neoplasm of large intestine; Z88.8 Allergy status to other drugs, medicaments and biological substances; Z88.6 Allergy status to analgesic agent
CPT/HCPCS: J1170; J1953; J2060; J2405; J2550; J7030

== ENCOUNTER 2020-12-23 16:09 | Outpatient (CLI) | payer OTHER ==
[~2020-12-23] VITALS: Ht 172.7 cm; Wt 49.5 kg
[~2020-12-23 16:09] MED LIST changes: +KEPPRA750 MG PO; +LEVOXYL0.1 MG PO; +LEVSIN0.125 M1 PO
[2020-12-23 16:33] VITALS: BP 98/52; PULSE 58; TEMP 97.4
[2021-04-18] MEDS ORDERED: PHENERGAN25 MG/ML IV (08:53)
[2021-04-18] MEDS ORDERED: ZOFRAN INJ4 MG/2 ML IV (08:54)
[2021-04-18] MEDS ORDERED: SENOKOT S 50 MG1 TAB PO (08:55)
[2021-04-18] MEDS ORDERED: KEPPRA750 MG PO (08:56)
[2021-04-18] MEDS ORDERED: ATIVAN 2MG/ML2 MG/ML IV (08:56)
[2021-04-18] MEDS ORDERED: ZOLOFT 25MG25 MG PO (08:56)
[2021-04-18] MEDS ORDERED: NYSTATIN OR100 MU/ML PO (09:03)
[2021-04-18] MEDS ORDERED: DILAUDID 2MG/2 MG/M1 IV ×2 (09:04→13:55)
== END 2020-12-23 17:48 | disposition home or self-care (01) ==
LOC: EUO 16:09
DX: C78.7 Secondary malignant neoplasm of liver and intrahepatic bile duct (principal); C78.6 Secondary malignant neoplasm of retroperitoneum and peritoneum; C77.2 Secondary and unspecified malignant neoplasm of intra-abdominal lymph nodes; C19 Malignant neoplasm of rectosigmoid junction; E86.0 Dehydration
CPT/HCPCS: J7030

== ENCOUNTER 2020-12-26 16:50 | Outpatient (CLI) | payer OTHER ==
[2020-12-26 17:30] VITALS: BP 112/82; PULSE 61; TEMP 97.9
[2021-04-18] MEDS ORDERED: PHENERGAN25 MG/ML IV (08:53)
[2021-04-18] MEDS ORDERED: ZOFRAN INJ4 MG/2 ML IV (08:54)
[2021-04-18] MEDS ORDERED: SENOKOT S 50 MG1 TAB PO (08:55)
[2021-04-18] MEDS ORDERED: ATIVAN 2MG/ML2 MG/ML IV (08:56)
[2021-04-18] MEDS ORDERED: ZOLOFT 25MG25 MG PO (08:56)
[2021-04-18] MEDS ORDERED: KEPPRA750 MG PO (08:56)
[2021-04-18] MEDS ORDERED: NYSTATIN OR100 MU/ML PO (09:03)
[2021-04-18] MEDS ORDERED: DILAUDID 2MG/2 MG/M1 IV ×2 (09:04→13:55)
== END 2020-12-26 18:45 | disposition home or self-care (01) ==
LOC: COL.RAD 16:50
DX: C19 Malignant neoplasm of rectosigmoid junction (principal); E86.0 Dehydration
CPT/HCPCS: J7030

== ENCOUNTER 2020-12-29 10:25 | Outpatient (CLI) | payer OTHER ==
--- NOTE | 2020-12-29 11:03 | NUR ---
Purple and red lumens flushed with 20 ml of NS with minimal resistance, and then give sluggish blood return. TANVIR Oswald RN notified, and recommends CXR.
[2020-12-29 13:11] VITALS: BP 120/74; PULSE 71
[2020-12-29] MEDS ORDERED: DILAUDID 2MG/2 MG/M1 IM (13:20)
[2020-12-29] MEDS ORDERED: ZOFRAN INJ4 MG/2 ML IV (13:26)
[2020-12-29] MEDS ORDERED: ONE-A-DAY ESSE1 EACH PO (13:27)
[2020-12-29] MEDS ORDERED: BACTRIM DS 8001 TAB PO (13:29)
[2020-12-29] MEDS ORDERED: PROBIOTIC BLEN1 EACH PO (13:30)
--- NOTE | 2020-12-29 14:40 | NUR ---
Pt opted to come back tomorrow morning for radiology procedure as Dr. Gutierres was not available today to complete procedure. Pt instructed to remain NPO after midnight, but morning meds are OK with small sip of water. She expressed understanding. IV tubing had become kinked while in EU, approximatley 500ml infused prior to discharging. She states she has to leave prior to completion of liter because she has radiation therapy appt to get to. She is assisted out to son's car by wheelchair.
[2021-04-18] MEDS ORDERED: PHENERGAN25 MG/ML IV (08:53)
[2021-04-18] MEDS ORDERED: ZOFRAN INJ4 MG/2 ML IV (08:54)
[2021-04-18] MEDS ORDERED: SENOKOT S 50 MG1 TAB PO (08:55)
[2021-04-18] MEDS ORDERED: ZOLOFT 25MG25 MG PO (08:56)
[2021-04-18] MEDS ORDERED: KEPPRA750 MG PO (08:56)
[2021-04-18] MEDS ORDERED: ATIVAN 2MG/ML2 MG/ML IV (08:56)
[2021-04-18] MEDS ORDERED: NYSTATIN OR100 MU/ML PO (09:03)
[2021-04-18] MEDS ORDERED: DILAUDID 2MG/2 MG/M1 IV ×2 (09:04→13:55)
== END 2020-12-29 14:40 | disposition home or self-care (01) ==
LOC: COL.RAD 10:25
DX: Z45.2 Encounter for adjustment and management of vascular access device (principal); C19 Malignant neoplasm of rectosigmoid junction; C77.2 Secondary and unspecified malignant neoplasm of intra-abdominal lymph nodes; C78.6 Secondary malignant neoplasm of retroperitoneum and peritoneum; C78.7 Secondary malignant neoplasm of liver and intrahepatic bile duct; N13.1 Hydronephrosis with ureteral stricture, not elsewhere classified
CPT/HCPCS: C1751; J7030

== ENCOUNTER → 2020-12-30 | Outpatient (CLI) | payer OTHER ==
[~2020-12-30] VITALS: Ht 172.7 cm; Wt 67.0 kg
[2020-12-30] VITALS (16 sets, daily range): BP systolic 112–143; BP diastolic 71–93; PULSE 80–96
[~2020-12-30] MED LIST changes: +ATIVAN 2MG/ML2 MG/ML IV; +BACTRIM DS 8001 TAB PO; +DILAUDID 2MG/2 MG/M1 IM; +DILAUDID 2MG/2 MG/M1 IV; +NYSTATIN OR100 MU/ML PO; +PHENERGAN25 MG/ML IV; +PROBIOTIC BLEN1 EACH PO; +SENOKOT S 50 MG1 TAB PO
--- NOTE | 2020-12-30 08:32 | NUR ---
Pt to procedure room for exchange of neph tube. Pt placed on table in prone position. Monitors applied to pt. Dr Gutierres in room.
--- NOTE | 2020-12-30 08:40 | NUR ---
Dr Gutierres attempts to flush nephrostomy tube with contrast, constrast comes back out the insertion site.
--- NOTE | 2020-12-30 08:45 | NUR ---
Dr Gutierres unable to pass guidewire. Pt to go to CT for replacement of nephrostomy tube. Ct notified of change and asked for time when possible.
--- NOTE | 2020-12-30 09:10 | NUR ---
pt to ct per cart. Waiting to take pt into room.
--- NOTE | 2020-12-30 09:15 | NUR ---
Pt into ct and rolled onto table from [facility]. Monitors reapplied. O2 continues at 2l/nc
--- NOTE | 2020-12-30 09:35 | NUR ---
Neph tube in place.
== END ==
LOC: COL.RAD 07:30
DX: N13.1 Hydronephrosis with ureteral stricture, not elsewhere classified (principal); Z93.6 Other artificial openings of urinary tract status; Z96.0 Presence of urogenital implants
CPT/HCPCS: 31844; C1729

== ENCOUNTER 2021-01-12 13:02 | Outpatient (CLI) | payer OTHER ==
[~2021-01-12] VITALS: Ht 172.7 cm; Wt 65.4 kg
--- NOTE | 2021-01-12 13:00 | NUR ---
Here for a PICC evaluation. Patient reported home health nurse was unable to flush PICC. dual lumen PICC intact with micro bore extension set present. blue cap present. I was able to flush lumen with extension set. other lumen flushed with 10 ml normal saline. extension set removed. cap changed and lumen flushed with 10ml normal saline with good blood return noted. advised to add a macro bore extension set if needed. to have give IV medication without an extension set. neutral cap advised. patient voiced understanding of instructions. may contact me for any other comments, questions and/or concerns. voiced understanding of instructions.
[~2021-01-12 13:02] MED LIST changes: -ATIVAN 2MG/ML2 MG/ML IV; -DILAUDID 2MG/2 MG/M1 IV; -NYSTATIN OR100 MU/ML PO; -PHENERGAN25 MG/ML IV; -SENOKOT S 50 MG1 TAB PO
[2021-01-12 13:16] VITALS: BP 97/64; PULSE 76; TEMP 98
--- NOTE | 2021-01-12 13:50 | NUR ---
TANVIR Oswald RN was able to flush both lumens of PICC line, and changed caps. She provided education to pt regarding correct caps for use on PICC line, as well as issues microbore tubing may be causing with adequate flushing. This information was reinforced by this nurse and pt expresses understanding. She was assited out to son's car by wheelchair.
[2021-04-18] MEDS ORDERED: PHENERGAN25 MG/ML IV (08:53)
[2021-04-18] MEDS ORDERED: ZOFRAN INJ4 MG/2 ML IV (08:54)
[2021-04-18] MEDS ORDERED: SENOKOT S 50 MG1 TAB PO (08:55)
[2021-04-18] MEDS ORDERED: KEPPRA750 MG PO (08:56)
[2021-04-18] MEDS ORDERED: ATIVAN 2MG/ML2 MG/ML IV (08:56)
[2021-04-18] MEDS ORDERED: ZOLOFT 25MG25 MG PO (08:56)
[2021-04-18] MEDS ORDERED: NYSTATIN OR100 MU/ML PO (09:03)
[2021-04-18] MEDS ORDERED: DILAUDID 2MG/2 MG/M1 IV ×2 (09:04→13:55)
== END 2021-01-12 14:06 | disposition home or self-care (01) ==
LOC: EUO 13:02
DX: C18.7 Malignant neoplasm of sigmoid colon (principal)

== ENCOUNTER → 2021-01-27 | Outpatient (CLI) | payer OTHER ==
[~2021-01-27] VITALS: Ht 172.7 cm; Wt 65.6 kg
[2021-01-27] VITALS (12 sets, daily range): BP systolic 104–133; BP diastolic 52–84; PULSE 70–82
[~2021-01-27] MED LIST changes: +ATIVAN 2MG/ML2 MG/ML IV; +DILAUDID 2MG/2 MG/M1 IV; +NYSTATIN OR100 MU/ML PO; +PHENERGAN25 MG/ML IV; +SENOKOT S 50 MG1 TAB PO
== END ==
LOC: COL.RAD 13:18
DX: C18.9 Malignant neoplasm of colon, unspecified (principal); C78.7 Secondary malignant neoplasm of liver and intrahepatic bile duct
CPT/HCPCS: C1729; J2250; J3010

== ENCOUNTER → 2021-03-02 | Outpatient (CLI) | payer OTHER ==
[2021-03-02] VITALS (9 sets, daily range): BP systolic 119–161; BP diastolic 75–108; PULSE 70–80
[~2021-03-02] VITALS: Ht 172.7 cm; Wt 65.0 kg
== END ==
LOC: COL.RAD 08:00
DX: N13.1 Hydronephrosis with ureteral stricture, not elsewhere classified (principal); N13.39 Other hydronephrosis
CPT/HCPCS: 32174